=== PATIENT | female | born 2000 | race Caucasian/White ===

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

== ENCOUNTER 2020-11-13 09:20 | Emergency (ER) | payer OTHER, MEDICAID, SELFPAY ==
--- NOTE | 2020-11-13 09:26 | ED.URI ---
HPI - URI/Sore Throat General Chief Complaint: Upper Respiratory Infection Stated Complaint: Congestion, runny Nose, chills, fever, sore Throat Source: patient Mode of arrival: ambulatory Limitations: no limitations History of Present Illness HPI Narrative: Patient is a 20 year old female who presents complaining of chills, body aches, swollen lymph nodes , rhinorrhea and congestion x2 days. She reports her son tested positive for strep throat and negative for Covid. She reports she feels she has the same. She denies known fever, denies taking over the counter medications for symptom relief at this time. She denies significant medical history. She reports vaccinated for Covid x2 and has no known exposure. 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 Related Data Home Medications Medication Instructions Recorded Confirmed sertraline [Zoloft] 100 mg PO DAILY 11/13/20 11/13/20 Allergies Allergy/AdvReac Type Severity Reaction Status Date / Time latex Allergy Rash Verified 09/08/19 16:29 Review of Systems Review of Systems: CONSTITUTIONAL: Reports chills and body aches. EYES: Denies visual changes, redness, or discharge. ENT: Reports rhinorrhea, congestion, sore throat. CARDIOVASCULAR: Denies chest pain, palpitations, or edema. RESPIRATORY: Denies cough or dyspnea. GASTROINTESTINAL: Denies abdominal pain, nausea, vomiting, or diarrhea. GENITOURINARY: Denies dysuria or hematuria. SKIN: Denies rash or itching. MUSCULOSKELETAL: Denies back pain, joint pain, or myalgia. NEUROLOGIC: Denies headache, numbness, dizziness, or weakness. PSYCHIATRIC: Denies anxiety or depression. [facility] Past Medical History Medical History Cartilage disorder Constipation Interstitial cystitis Family History Family History (Updated 11/13/20 @ 09:57 by MEIR Perkins) Other No significant family history Social History Social History Smoking status: Never smoker Comments At the time of signature, I have reviewed and agree with nursing past medical, surgical, social, and family history unless otherwise noted. Please see nursing chart for further information. There is no relevant family history pertinent to the presenting complaint. Exam Narrative: GENERAL: Ill-appearing but in no acute distress HEAD: Normocephalic, atraumatic. EYES: EOMI. No redness or drainage. Conjunctiva are normal. ENT: Mucous membranes pink and moist. Nares clear. TMs normal bilaterally. Throat positive for erythema and edema, no exudate. Uvula midline. NECK: AROM. Supple. Cervical lymphadenopathy positive. CHEST: No respiratory distress. HEART: Regular rate and rhythm. EXTREMITIES: Normal range of motion. No edema. SKIN: Warm, dry, no rash. NEURO: No focal deficits. Alert and oriented x3. Gait steady. PSYCH: Normal affect. No signs of depression or anxiety. Course Vital Signs Vital signs: Vital Signs Temperature 37.3 C 11/13/20 09:30 Pulse Rate 106 H 11/13/20 09:30 Respiratory Rate 16 11/13/20 09:30 Blood Pressure 111/65 11/13/20 09:30 Pulse Oximetry 100 11/13/20 09:30 Temperature 37.3 C 11/13/20 09:30 Pulse Rate 106 H 11/13/20 09:30 Respiratory Rate 16 11/13/20 09:30 Blood Pressure 111/65 11/13/20 09:30 Pulse Oximetry 100 11/13/20 09:30 Reviewed MDM - URI/Sore Throat MDM Narrative Medical decision making narrative: Patient's rapid strep is negative, culture sent at this time. Patient declines Covid or flu testing. Patient's throat is erythematous without exudate. Discussed treatment for tonsillitis. Patient reports 67 son is positive for strep throat at this time. She reports he was tested for Covid and was negative. Patient is vaccinated. Patient is aware that if symptoms persist, Covid testing is recommended. Patient agrees with plan of care.
[2020-11-13 09:30] VITALS: BP 111/65; PULSE 106; RESP 16; TEMP 37.3; O2SAT 100
== END 2020-11-13 10:07 | disposition home or self-care (01) ==
PROVIDERS: Emergency Provider Nurse Practitioner; PCP Family Medicine
DX: J03.90 Acute tonsillitis, unspecified (principal)
CPT/HCPCS: 87081; 87880; 99213; G0463

== ENCOUNTER 2021-07-16 15:58 | Emergency (ER) | payer OTHER, MEDICAID, SELFPAY ==
[2021-07-16 16:06] VITALS: BP 105/59; PULSE 124; RESP 14; TEMP 37.7; O2SAT 99
--- NOTE | 2021-07-16 16:17 | ED.URI ---
HPI - URI/Sore Throat General Chief Complaint: Upper Respiratory Infection Stated Complaint: Fever/Vomiting Time Seen by Provider: 07/16/21 16:10 Source: patient and RN notes reviewed History of Present Illness HPI Narrative: Patient is a 21-year-old female who presents the urgent care with complaints of fever, nausea, vomiting and diarrhea. Patient states that she woke up this morning with body aches and chills. States that her roommate has influenza and another 1 has a stomach bug. Patient states her symptoms all started last night. Reports of the use of Tylenol without any other [id number] medications. No other acute complaints. No acute distress noted. Patient aware of the plan of care. Some parts of this dictation were generated by voice recognition software and may contain typographical and/or grammatical inaccuracies. Related Data Home Medications Medication Instructions Recorded Confirmed dextroamphetamine-amphetamine 25 mg PO DAILY 07/16/21 07/16/21 etonogestrel [Nexplanon] 1 implant SUBDERMAL ONCE 07/16/21 07/16/21 Allergies Allergy/AdvReac Type Severity Reaction Status Date / Time latex Allergy Rash Verified 07/16/21 16:04 Review of Systems Review of Systems: CONSTITUTIONAL: Reports of fever, chills, sweats EYES: Denies visual changes, redness, or discharge. ENT: Denies rhinorrhea, congestion, sore throat, or otalgia. CARDIOVASCULAR: Denies chest pain, palpitations, or edema. RESPIRATORY: Denies cough or dyspnea. GASTROINTESTINAL: Reports of nausea, vomiting and diarrhea GENITOURINARY: Denies dysuria or hematuria. SKIN: Denies rash or itching. MUSCULOSKELETAL: Denies back pain, joint pain. Reports of body aches NEUROLOGIC: Denies headache, numbness, or weakness. All other systems reviewed are negative, except as documented in HPI. [facility] Past Medical History Medical History Cartilage disorder Constipation Interstitial cystitis Family History Family History (Updated 11/13/20 @ 09:57 by Erinn Mcneil, MEIR) Other No significant family history Social History Social History Smoking status: Never smoker Comments At the time of my signature, I reviewed and agree with the nursing past medical, surgical, social, and family history. There is no relevant family history pertinent to the patient complaint. Exam Narrative: GENERAL: This is a well-nourished, well-developed patient, in no apparent distress. HEAD: normocephalic, atraumatic. EYES: PERRL. Sclera clear/white. Vision is grossly intact. EARS: External ears normal, auditory canals clear and without drainage, TMs normal without perforation. Hearing grossly intact. NOSE: External nose normal with no obvious nasal discharge, nares without redness, no rhinorrhea. THROAT: Mucous membranes moist, posterior pharynx clear. Mild postnasal drainage NECK: Neck supple CARDIOVASCULAR: Regular rate and rhythm RESPIRATORY: Clear to auscultation. Breath sounds equal bilaterally. No wheezes, rales, or rhonchi. GASTROINTESTINAL: Abdomen soft, non-tender, nondistended. Bowel sounds are hyperactive. No guarding. SKIN: warm, intact with no suspicious lesions or rash, good texture and turgor. NEURO: awake, alert, and oriented to person, place and time. There were no obvious focal neurologic abnormalities. EXTREMITIES: No clubbing, cyanosis, or edema. Course Course Level of Care: Express Care Visit Vital Signs Vital signs: Vital Signs Temperature 99.8 F H 07/16/21 16:06 Pulse Rate 124 H 07/16/21 16:06 Respiratory Rate 14 07/16/21 16:06 Blood Pressure 105/59 L 07/16/21 16:06 Pulse Oximetry 99 07/16/21 16:06 Temperature 99.8 F H 07/16/21 16:06 Pulse Rate 124 H 07/16/21 16:06 Respiratory Rate 14 07/16/21 16:06 Blood Pressure 105/59 L 07/16/21 16:06 Pulse Oximetry 99 07/16/21 16:06 Reviewed MDM - U
== END 2021-07-16 16:32 | disposition home or self-care (01) ==
PROVIDERS: Emergency Provider Nurse Practitioner Family; PCP Family Medicine
DX: K52.9 Noninfective gastroenteritis and colitis, unspecified (principal)
CPT/HCPCS: 87804; 99213; G0463

== ENCOUNTER 2021-11-06 09:44 | Emergency (ER) | payer OTHER, MEDICAID, SELFPAY ==
[2021-11-06 09:51] VITALS: BP 122/72; PULSE 80; RESP 18; TEMP 36.6; O2SAT 100
--- NOTE | 2021-11-06 10:02 | ED.NAVMDI ---
HPI - Nausea/Vomiting/Diarrhea General Chief complaint: Nausea/Vomiting/Diarrhea Stated complaint: Nausea/Vomiting Time Seen by Provider: 11/06/21 10:03 Source: patient and RN notes reviewed Mode of arrival: ambulatory Limitations: no limitations History of Present Illness HPI Narrative: 21 y/o female presented for c/o nausea x5 days, endorses episodes of vomiting last night and today. Denies abdominal pain, constipation, diarrhea, urinary symptoms, fever/chills. LMP 09/30/21 with Nexplanon, Took neg preg test at home. Recovering anorexic, stating she drinks most of her calories, and has vomited most of what she has drank. Took meclizine at home. Related Data Home Medications Medication Instructions Recorded Confirmed etonogestrel 68 mg subdermal 1 implant subdermal ONCE 07/16/21 11/06/21 implant (Nexplanon) aripiprazole 5 mg tablet (Abilify) 5 mg PO DAILY 11/06/21 11/06/21 lithium carbonate 300 mg capsule 300 mg PO HS 11/06/21 11/06/21 trazodone 100 mg tablet 100 mg PO HS 11/06/21 11/06/21 Allergies Allergy/AdvReac Type Severity Reaction Status Date / Time latex Allergy Anaphylaxis Verified 11/06/21 10:00 Review of Systems Review of Systems: CONSTITUTIONAL: Denies body aches, fever, chills ENT: Denies rhinorrhea, congestion CARDIOVASCULAR: Denies chest pain, palpitations, or edema. RESPIRATORY: Denies cough or dyspnea. GASTROINTESTINAL: Endorses nausea, vomiting Denies abdominal pain hematochezia, melena, hematemesis GENITOURINARY: Denies dysuria, hematuria, or CVA tenderness. SKIN: Denies rash, itching, or wounds. MUSCULOSKELETAL: Denies back pain, joint pain, or myalgia. NEUROLOGIC: Denies headache All systems reviewed & are unremarkable except as noted in HPI and below PMFSH Past Medical History Medical History Cartilage disorder Constipation Interstitial cystitis Family History Family History Other No significant family history Social History Social History Smoking status: Never smoker Comments At time of signature, I have reviewed and agree with nursing past medical, surgical, social and family history unless otherwise noted. Please see nursing chart for further information. There is no relevant family history pertinent to the presenting complaint Exam Narrative: GENERAL: Well-appearing EYES: EOMI. Conjunctivae normal. ENT: Mucous membranes pink and moist. CHEST: Clear to auscultation. HEART: Regular rate and rhythm. No murmur appreciated. Normal peripheral pulses. ABDOMEN: abd soft, flat, normal active bowel sounds. mild epigastric tenderness; No guarding EXTREMITIES: Normal range of motion. No edema. SKIN: Warm, dry, no rash. Capillary refill normal. Normal skin turgor. NEURO: Alert and oriented x3. PSYCH: Normal affect. Course Course Emergency Course: Patient is aware of diagnosis, understands and agrees to treatment plan. Anticipatory guidance given. Patient agrees to follow-up as directed and is aware of reasons to seek care at the emergency department. Portions of this record may have been created with voice recognition software Level of Care: Express Care Visit Vital Signs Vital signs: Vital Signs Temperature 98 F 11/06/21 09:51 Pulse Rate 80 11/06/21 09:51 Respiratory Rate 18 11/06/21 09:51 Blood Pressure 122/72 11/06/21 09:51 Pulse Oximetry 100 11/06/21 09:51 Oxygen Delivery Room Air 11/06/21 09:51 Temperature 98 F 11/06/21 09:51 Pulse Rate 80 11/06/21 09:51 Respiratory Rate 18 11/06/21 09:51 Blood Pressure 122/72 11/06/21 09:51 Pulse Oximetry 100 11/06/21 09:51 Oxygen Delivery Room Air 11/06/21 09:51 MDM - Nausea/Vomiting/Diarrhea MDM Narrative Medical decision making narrative: Urine preg negative. UA with trace leuks. Zofran given with
[2021-11-06] MEDS: ONDANSETRON HCL ODT 4 MG TABLET SUBLINGUAL (10:06)
== END 2021-11-06 10:47 | disposition home or self-care (01) ==
PROVIDERS: Emergency Provider Nurse Practitioner Family; PCP Family Medicine
DX: R11.2 Nausea with vomiting, unspecified (principal)
CPT/HCPCS: 81003; 81025; 87086; 87088; 99213; A9270; G0463

== ENCOUNTER 2022-01-22 08:05 | Emergency (ER) | payer OTHER, MEDICAID, SELFPAY ==
[2022-01-22 08:13] VITALS: BP 102/84; PULSE 127; RESP 20; TEMP 36.6; O2SAT 100
--- NOTE | 2022-01-22 08:15 | ED.URI ---
HPI - URI/Sore Throat General Chief Complaint: Upper Respiratory Infection Stated Complaint: headache nausea diarrhea Time Seen by Provider: 01/22/22 08:15 Source: patient and RN notes reviewed History of Present Illness HPI Narrative: patient is a 21-year-old female who presents to the Urgent Care with complaints of intermittent headache with nausea and diarrhea. Patient states she is not vomiting however she has had several loose stools since this morning at 1:30 a.m.. patient states that she is recovering anorexic and her 1st meal yesterday was last night, chicken and Pakistani fries. Patient states that is her normal diet and has never had issues before. Patient denies any known fevers. 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 Patient has not taken anything [id number] for her symptoms. No other acute complaints. No acute distress noted. Patient aware of the plan of care. Some parts of this dictation were generated by voice recognition software and may contain typographical and/or grammatical inaccuracies. Related Data Home Medications Medication Instructions Recorded Confirmed etonogestrel 68 mg subdermal 1 implant subdermal ONCE 07/16/21 01/22/22 implant (Nexplanon) aripiprazole 5 mg tablet (Abilify) 5 mg PO DAILY 11/06/21 01/22/22 lithium carbonate 300 mg capsule 300 mg PO HS 11/06/21 01/22/22 Allergies Allergy/AdvReac Type Severity Reaction Status Date / Time latex Allergy Anaphylaxis Verified 01/22/22 08:20 Review of Systems Review of Systems: CONSTITUTIONAL: Denies fever, chills, or sweats. EYES: Denies visual changes, redness, or discharge. ENT: Denies rhinorrhea, congestion, sore throat, or otalgia. CARDIOVASCULAR: Denies chest pain, palpitations, or edema. RESPIRATORY: Denies cough or dyspnea. GASTROINTESTINAL: reports of nausea and vomiting GENITOURINARY: Denies dysuria or hematuria. SKIN: Denies rash or itching. MUSCULOSKELETAL: Denies back pain, joint pain, or myalgia. NEUROLOGIC: reports of headache All other systems reviewed are negative, except as documented in HPI. [facility] Past Medical History Medical History Cartilage disorder Constipation Interstitial cystitis Family History Family History Other No significant family history Social History Social History Smoking status: Never smoker Comments At the time of my signature, I reviewed and agree with the nursing past medical, surgical, social, and family history. There is no relevant family history pertinent to the patient complaint. Exam Narrative: GENERAL: This is a well-nourished, well-developed patient, in no apparent distress. HEAD: normocephalic, atraumatic. EYES: PERRL. Sclera clear/white. Vision is grossly intact. EARS: External ears normal, auditory canals clear and without drainage, TMs normal without perforation. Hearing grossly intact. NOSE: External nose normal with no obvious nasal discharge, nares without redness, no rhinorrhea. THROAT: Mucous membranes moist, posterior pharynx clear. NECK: Neck supple, non-tender without lymphadenopathy CARDIOVASCULAR: Regular rate and rhythm without murmurs, gallops, or rubs. RESPIRATORY: Clear to auscultation. Breath sounds equal bilaterally. No wheezes, rales, or rhonchi. GASTROINTESTINAL: Abdomen soft, mild epigastric tenderness, nondistended. Bowel sounds are hypoactive. No guarding. SKIN: warm, intact with no suspicious lesions or rash, good texture and turgor. NEURO: awake, alert, and oriented to person, place and time. There were no obvious focal neurologic abnormalities. EXTREMITIES: No clubbing, cyanosis, or edema. Course Course Level of Care: Express Care Visit Vital Signs Vital signs: Vital Signs Temperature 97.8 F 01/22/22 08:13 Pulse Rate 127 H 01/22
== END 2022-01-22 08:37 | disposition home or self-care (01) ==
PROVIDERS: Emergency Provider Nurse Practitioner Family; PCP Family Medicine
DX: R11.2 Nausea with vomiting, unspecified (principal)
CPT/HCPCS: 99213; G0463

== ENCOUNTER 2022-02-20 08:24 | Emergency (ER) | payer OTHER, MEDICAID, SELFPAY ==
--- NOTE | 2022-02-20 08:28 | ED.URI ---
HPI - URI/Sore Throat General Chief Complaint: Upper Respiratory Infection Stated Complaint: Cough/Chest Congestion Time Seen by Provider: 02/20/22 08:28 Source: patient and RN notes reviewed History of Present Illness HPI Narrative: patient is a 21-year-old female who presents to urgent care with complaints of cough and chest congestion for 3 days. Patient states that she now woke up worse and fatigued. Patient denies any fevers, nausea, vomiting, shortness of breath. Patient has been taking Tylenol. 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 No other acute complaints. No acute distress noted. Patient aware of the plan of care. Some parts of this dictation were generated by voice recognition software and may contain typographical and/or grammatical inaccuracies. Related Data Home Medications Medication Instructions Recorded Confirmed etonogestrel 68 mg subdermal 1 implant subdermal ONCE 07/16/21 02/20/22 implant (Nexplanon) aripiprazole 5 mg tablet (Abilify) 5 mg PO DAILY 11/06/21 02/20/22 lithium carbonate 300 mg capsule 300 mg PO HS 11/06/21 02/20/22 Allergies Allergy/AdvReac Type Severity Reaction Status Date / Time latex Allergy Anaphylaxis Verified 02/20/22 08:39 Review of Systems Review of Systems: CONSTITUTIONAL: Denies fever, chills, or sweats. reports fatigue EYES: Denies visual changes, redness, or discharge. ENT: Denies rhinorrhea, congestion, sore throat, or otalgia. Reports of hoarseness CARDIOVASCULAR: Denies chest pain, palpitations, or edema. RESPIRATORY: reports of cough and chest congestion without dyspnea GASTROINTESTINAL: Denies abdominal pain, nausea, vomiting, or diarrhea. GENITOURINARY: Denies dysuria or hematuria. SKIN: Denies rash or itching. MUSCULOSKELETAL: Denies back pain, joint pain, or myalgia. NEUROLOGIC: Denies headache, numbness, or weakness. All other systems reviewed are negative, except as documented in HPI. [facility] Past Medical History Medical History Cartilage disorder Constipation Interstitial cystitis Family History Family History Other No significant family history Social History Social History Smoking status: Never smoker Comments At the time of my signature, I reviewed and agree with the nursing past medical, surgical, social, and family history. There is no relevant family history pertinent to the patient complaint. Exam Narrative: GENERAL: This is a well-nourished, well-developed patient, in no apparent distress. HEAD: normocephalic, atraumatic. EYES: PERRL. Sclera clear/white. Vision is grossly intact. EARS: External ears normal, auditory canals clear and without drainage, TMs normal without perforation. Hearing grossly intact. NOSE: External nose normal with no obvious nasal discharge, nares without redness, no rhinorrhea. THROAT: Mucous membranes moist, posterior pharynx clear. Moderate postnasal drainage NECK: Neck supple, non-tender without lymphadenopathy, masses or thyromegaly. CARDIOVASCULAR: Regular rate and rhythm without murmurs, gallops, or rubs. RESPIRATORY: harsh cough noted on exam.Clear to auscultation. Breath sounds equal bilaterally. No wheezes, rales, or rhonchi. SKIN: warm, intact with no suspicious lesions or rash, good texture and turgor. NEURO: awake, alert, and oriented to person, place and time. There were no obvious focal neurologic abnormalities. EXTREMITIES: No clubbing, cyanosis, or edema. Course Course Level of Care: Express Care Visit Vital Signs Vital signs: Vital Signs Temperature 98 F 02/20/22 08:38 Pulse Rate 90 02/20/22 08:38 Respiratory Rate 18 02/20/22 08:38 Blood Pressure 107/70 02/20/22 08:38 Pulse Oximetry 99 02/20/22 08:38 Oxygen Delivery Room Air 02/20/22 08:38 Temperature 98
[2022-02-20 08:38] VITALS: BP 107/70; PULSE 90; RESP 18; TEMP 36.6; O2SAT 99
== END 2022-02-20 08:57 | disposition home or self-care (01) ==
PROVIDERS: Emergency Provider Nurse Practitioner Family; PCP Family Medicine
DX: J00 Acute nasopharyngitis [common cold] (principal)
CPT/HCPCS: 99213; G0463

== ENCOUNTER 2022-03-09 09:38 | Emergency (ER) | payer OTHER, MEDICAID, SELFPAY ==
[2022-03-09 09:38] VITALS: BP 98/72; PULSE 73; RESP 16; TEMP 36.6; O2SAT 100
--- NOTE | 2022-03-09 09:58 | ED.GENADULT ---
HPI - General Adult General Chief complaint: Dental/Oral Stated complaint: infection on right side of mouth Time Seen by Provider: 03/09/22 09:47 History of Present Illness HPI narrative: Cal is a 21F with a PMH of poor dentition that presented to the ED with a a few days or worsening pain that started in her right lower molars and has become worse. She now has an ache in her right ear and it hurts to swallow but no food is getting stuck. There was no fevers, chills, CP, dyspnea, GI upset or diarrhea reported. Related Data Home Medications Medication Instructions Recorded Confirmed etonogestrel 68 mg subdermal 1 implant subdermal ONCE 07/16/21 03/09/22 implant (Nexplanon) aripiprazole 5 mg tablet (Abilify) 5 mg PO DAILY 11/06/21 03/09/22 lithium carbonate 300 mg capsule 300 mg PO HS 11/06/21 03/09/22 Allergies Allergy/AdvReac Type Severity Reaction Status Date / Time latex Allergy Anaphylaxis Verified 02/20/22 08:39 Review of Systems Review of Systems: All systems reviewed & are unremarkable except as noted in HPI and below PMFSH Past Medical History Medical History Cartilage disorder Constipation Interstitial cystitis Family History Family History Other No significant family history Social History Social History Smoking status: Never smoker Exam Const: General: healthy appearing and no acute distress Nutritional Appearance: well nourished HENMT: Head: normal to inspection Ears: external ears normal Mouth: Yes Normal oral and palatal mucosa present and Yes moist mucous membranes Other: globally poor dentition and right lower molar had edematous erythematous base Eyes: Conjunctivae: conjunctivae normal Pupils: Equal, round and reactive pupils present Neck: Neck: normal visual inspection Chest: Chest palpation & inspection: normal inspection of the chest Resp: Effort & Inspection: normal respiratory effort Auscultation: clear to auscultation bilaterally Cardio: Rate: regular rate GI: Inspection: distended GI Palp: Yes Soft to palpation and No Tenderness to palpation present (GI) Auscultation: normal bowel sounds Skin: General skin exam: normal color Neuro: General: patient oriented x3 and moves all extremities Cranial nerves: Yes Nystagmus not present Extrem: General: normal to inspection Psych: Mental Status: mental status grossly normal Course Course Emergency Course: Ordered Augmentin and toradol Vital Signs Vital signs: Vital Signs Temperature 97.8 F 03/09/22 09:38 Pulse Rate 73 03/09/22 09:38 Respiratory Rate 16 03/09/22 09:38 Blood Pressure 98/72 L 03/09/22 09:38 Pulse Oximetry 100 03/09/22 09:38 Oxygen Delivery Room Air 03/09/22 09:38 Temperature 97.8 F 03/09/22 10:42 Pulse Rate 76 03/09/22 10:42 Respiratory Rate 20 03/09/22 10:42 Blood Pressure 98/72 L 03/09/22 10:42 Pulse Oximetry 100 03/09/22 10:42 Oxygen Delivery Room Air 03/09/22 10:42 Medical Decision Making Vital Signs Vital Signs: Vital Signs Temperature 97.8 F 03/09/22 09:38 Pulse Rate 73 03/09/22 09:38 Respiratory Rate 16 03/09/22 09:38 Blood Pressure 98/72 L 03/09/22 09:38 Pulse Oximetry 100 03/09/22 09:38 Oxygen Delivery Room Air 03/09/22 09:38 Temperature 97.8 F 03/09/22 10:42 Pulse Rate 76 03/09/22 10:42 Respiratory Rate 20 03/09/22 10:42 Blood Pressure 98/72 L 03/09/22 10:42 Pulse Oximetry 100 03/09/22 10:42 Oxygen Delivery Room Air 03/09/22 10:42 Discharge Plan Discharge Clinical Impression: Dental infection Patient Disposition: Home, Self-Care Condition: Stable Instructions: Antibiotic Form Prescriptions: New amoxicillin-pot clavulanate 875-125 mg tablet 1 tablet PO Q12H Qty: 10 0RF hydrocodone-
[2022-03-09] MEDS: KETOROLAC 30 MG/ML VIAL (*BKC) IM (10:31)
[2022-03-09] MEDS: AMOXICILLIN/CLAVULANATE K 875-125 MG TAB 1 TABLET PO (10:32)
[2022-03-09 10:42] VITALS: BP 98/72; PULSE 76; RESP 20; TEMP 36.6; O2SAT 100
== END 2022-03-09 10:45 | disposition home or self-care (01) ==
PROVIDERS: Emergency Provider Family Medicine; PCP Family Medicine
DX: K04.7 Periapical abscess without sinus (principal)
CPT/HCPCS: 96372; 99283; A9270; J1885

== ENCOUNTER 2022-05-15 08:16 | Emergency (ER) | payer OTHER, MEDICAID, SELFPAY ==
--- NOTE | 2022-05-15 08:21 | ED.GENADULT ---
HPI - General Adult General Chief complaint: Back Pain/Injury Stated complaint: Back Pain Source: patient and RN notes reviewed History of Present Illness HPI narrative: 22-year-old female presents to urgent care with complaints of right mid back pain that woke her up in the middle of the night. Patient states the pain is constant however no acute intense intermittently. Patient states she feels the pain more when she palpates her right upper quadrant of her abdomen. Patient reports but denies any vomiting. Denies any dysuria, diarrhea or constipation. Denies any fevers or chills. Patient took some Tylenol night without any relief. Some parts of this dictation were generated by voice recognition software and may contain typographical and/or grammatical inaccuracies. Related Data Home Medications Medication Instructions Recorded Confirmed etonogestrel 68 mg subdermal 1 implant subdermal ONCE 07/16/21 05/15/22 implant (Nexplanon) aripiprazole 5 mg tablet (Abilify) 5 mg PO DAILY 11/06/21 05/15/22 lithium carbonate 300 mg capsule 300 mg PO HS 11/06/21 05/15/22 Allergies Allergy/AdvReac Type Severity Reaction Status Date / Time latex Allergy Anaphylaxis Verified 05/15/22 08:28 Review of Systems Review of Systems: CONSTITUTIONAL: Denies fever, chills, or sweats. EYES: Denies visual changes, redness, or discharge. ENT: Denies otalgia and sore throat CARDIOVASCULAR: Denies chest pain, palpitations, or edema. RESPIRATORY: Denies cough or dyspnea. GASTROINTESTINAL: Nausea GENITOURINARY: Denies dysuria or hematuria. SKIN: Denies rash or itching. MUSCULOSKELETAL: Right midback pain. NEUROLOGIC: Denies headache, numbness, or weakness. [facility] Past Medical History Medical History Cartilage disorder Constipation Interstitial cystitis Family History Family History Other No significant family history Social History Social History Smoking status: Never smoker Comments At the time of my signature, I reviewed and agree with the nursing past medical, surgical, social, and family history. There is no relevant family history pertinent to the patient complaint. Exam Narrative: GENERAL: This is a well-nourished, well-developed patient, in no apparent distress. HEAD: normocephalic, atraumatic. EYES: PERRL. Sclera clear/white. Vision is grossly intact. EARS: External ears normal, auditory canals clear and without drainage, TMs normal without perforation. Hearing grossly intact. NOSE: External nose normal with no obvious nasal discharge, nares without redness, no rhinorrhea. THROAT: Mucous membranes moist, posterior pharynx clear. NECK: Neck supple, non-tender without lymphadenopathy, masses or thyromegaly. CARDIOVASCULAR: Regular rate and rhythm without murmurs, gallops, or rubs. RESPIRATORY: Clear to auscultation. Breath sounds equal bilaterally. No wheezes, rales, or rhonchi. GASTROINTESTINAL: Pt feels pain in her right mid back when her RUQ is palpated. No RLQ or epigastric pain. SKIN: warm, intact with no suspicious lesions or rash, good texture and turgor. NEURO: awake, alert, and oriented to person, place and time. There were no obvious focal neurologic abnormalities. EXTREMITIES: No clubbing, cyanosis, or edema. No joint tenderness, effusion, or edema noted. BACK: Nontender without deformity or crepitance. No flank tenderness. Course Course Level of Care: Express Care Visit Vital Signs Vital signs: Vital Signs Temperature 97.8 F 05/15/22 08:22 Pulse Rate 92 05/15/22 08:22 Respiratory Rate 20 05/15/22 08:22 Blood Pressure 100/59 L 05/15/22 08:22 Pulse Oximetry 100 05/15/22 08:22 Oxygen Delivery Room Air 05/15/22 08:22 Temperature 97.8 F 05/15/22 08:22 Pulse Rate 92 05/15/22 08:22 Respiratory Rate 20 05/15/22 0
[2022-05-15 08:22] VITALS: BP 100/59; PULSE 92; RESP 20; TEMP 36.6; O2SAT 100
== END 2022-05-15 09:02 | disposition home or self-care (01) ==
PROVIDERS: Emergency Provider Nurse Practitioner Family; PCP Family Medicine
DX: N39.0 Urinary tract infection, site not specified (principal)
CPT/HCPCS: 81003; 81025; 87077; 87086; 87186; 99213; G0463

== ENCOUNTER 2022-06-21 09:00 | Emergency (ER) | payer OTHER, MEDICAID, SELFPAY ==
--- NOTE | ~2022-06-21 | CT_ITS ---
EXAMINATION: CT abdomen pelvis w con DATE: 06/21/2022 10:47 INDICATION: Generalized abdominal pain, nausea, vomiting and diarrhea for 3 to 4 days. TECHNIQUE: Computed tomography (CT) of the abdomen and pelvis was performed with 100 CC Omnipaque 350 intravenous contrast. Automated exposure control and iterative reconstruction technique were employe d. Exam dose: 194.70 mGy-cm total exam DLP. COMPARISON: None. FINDINGS: The lung bases are clear. Normal heart size. No pericardial or pleural effusion. The liver, gallbladder, bile ducts, spleen, pancreas, pancreatic duct, and adrenal glands and kidneys are unremarkable. Normal caliber of the abdominal aorta. No intraperitoneal or retroperitoneal or pe lvic mass lesion or adenopathy or ascites is detected. There is moderate thickness of the urinary bladder wall which may be due to underdistention or cystit is. Uterus and adnexal areas are unremarkable. No bowel obstruction, bowel wall thickening, pneumatosis or intraperitoneal free air is detected. The appendix is not clearly defined but no inflammatory changes noted in the right lower quadrant. Included skeletal structures are unremarkable. IMPRESSION: Nonspecific examination Reviewed, dictated and finalized at [facility]. Reviewed, dictated and finalized at [facility]. IMPRESSION: Nonspecific examination
--- NOTE | ~2022-06-21 | XR_ITS ---
XR chest 2V DATE: 06/21/2022 10:48 INDICATION: Shortness of breath, nausea, vomiting and diarrhea for 4 to 5 days. TECHNIQUE: PA and lateral views COMPARISON: None FINDINGS: Normal heart size. No hilar or mediastinal enlargement. Bilateral hyperinflation. No pulmon alphonso infiltrate or consolidation, pleural effusion or pulmonary vascular congestion or pneumothorax. IMPRESSION: Bilateral hyperinflation Reviewed, dictated and finalized at [facility]. IMPRESSION: Bilateral hyperinflation
[2022-06-21 09:00] VITALS: BP 129/81; PULSE 110; RESP 18; TEMP 38.6; O2SAT 99
--- NOTE | 2022-06-21 09:22 | ECG_ITS ---
Measurements Intervals [place] Rate: 97 P: 58 DC: 123 QRS: 87 QRSD: 96 T: 52 QT: 314 QTc: 401 Interpretive Statements SINUS RHYTHM POSSIBLE RIGHT VENTRICULAR CONDUCTION DELAY [RSR (QR) IN V1/V2] BORDERLINE ECG COMPARED TO ECG 09/08/2019 20:17:05 NO SIGNIFICANT CHANGES Electronically Signed On 06-21-2022 14:46:16 CDT by Vaibhav Montero M.D.
[2022-06-21 09:49] LABS: Basophils Absolute Auto 0.02 K/mm3 (0.00-0.10); Basophils Percent Auto 0.2 % (0.0-1.0); Eosinophils Absolute Auto 0.01 K/mm3 (0.02-0.50); Eosinophils Percent Auto 0.1 % (1.0-6.0); Hematocrit 37.9 % (35.0-49.0); Immature Granulocyte Absolute 0.05 K/mm3 (0.00-0.00); Immature Granulocyte Percent A 0.4 % (0.0-0.0); Lymphocytes Absolute Auto 0.62 K/mm3 (1.10-4.50); Lymphocytes Percent Auto 4.8 % (18.0-42.0); Mean Corpuscular HGB Conc 34.3 g/dL (32.0-36.0); Mean Corpuscular Hemoglobin 30.2 pg (27.0-31.0); Mean Corpuscular Volume 87.9 fL (78.0-102.0); Mean Platelet Volume 9.5 fl (9.2-11.8); Monocytes Absolute Auto 0.81 K/mm3 (0.10-0.90); Monocytes Percent Auto 6.3 % (2.0-11.0); Neutrophils Absolute Auto 11.4 K/mm3 (1.7-7.2); Neutrophils Percent Auto 88.2 % (50.0-70.0); Platelet Count Result 272 K/mm3 (150-420); Red Blood Count 4.31 M/mm3 (4.20-5.40); Red Cell Distribution Width 12.2 % (11.6-14.4)
[2022-06-21 09:51] LABS: Bilirubin Urine 1+ (Negative); Blood Urine Negative (Negative); Glucose Urine UA Negative (Negative); Ketones Urine 1+ (Negative); Leukocyte Esterase Ur Negative LEU/UL (Negative); Nitrate Urine Negative (Negative); Protein Urine 2+ (Negative); Specific Grav Ur 1.025 (1.010-1.020)
[2022-06-21] MEDS: SODIUM CHLORIDE 0.9% IV 1,000 ML 999 ML IV CONT (09:53)
[2022-06-21] MEDS: ALPRAZolam (*CRX) 0.5 MG TABLET PO (09:54)
[2022-06-21] MEDS: ACETAMINOPHEN 500 MG TABLET 1000 MG PO (09:54)
[2022-06-21] MEDS: ONDANSETRON INJ 4 MG/2 ML VIAL IV PUSH (09:55)
[2022-06-21 10:00] LABS: Appearance Urine Slightly Cloudy (Clear); Color Urine Dark Yellow (Yellow); Pregnancy On Board Control Positive; Urine Pregnancy Test Negative
[2022-06-21 10:01] LABS: Add Urine Microscopic? YES; Bacteria Urine 2+ /hpf; Mucus Urine Few /lpf; RBC Urine 0-2 /hpf (0-2); Squamous Epithelial Cell Urine Few /hpf (Few); WBC Urine 0-3 /hpf (0-3)
[2022-06-21 10:12] LABS: Lactic Acid Reflex 1.1 mmol/L (0.4-2.0)
[2022-06-21 10:13] LABS: Alanine Aminotransferase 16 U/L (14-59); Albumin Level 4.1 g/dL (3.4-5.0); Alkaline Phosphatase 74 U/L (46-116); Anion Gap 12 mmol/L (8-16); Aspartate Amino Transferase 15 U/L (15-37); Bilirubin,Total 0.8 mg/dL (0.00-1.00); Blood Urea Nitrogen 7 mg/dL (7-18); Calcium 8.7 mg/dL (8.5-10.1); Carbon Dioxide 24 mmol/L (21-32); Chloride 98 mmol/L (98-108); Estimated CRCL calculation 68 ml/min; Estimated Glomerular Filt Rate > 60; Glucose 107 mg/dL (70-99); Osmolality Calculated 276 mOsm/kg (285-295); Potassium 2.9 mmol/L (3.5-5.1); Sodium 134 mmol/L (136-145); Thyroid Stimulating Hormone 0.52 uIU/mL (0.36-3.74); Total Protein 7.8 g/dL (6.4-8.2)
[2022-06-21 10:26] LABS: Influenza A QL RT-PCR Negative (Negative); Influenza B QL RT-PCR Negative (Negative); RSV RNA, RT-PCR Negative (Negative); SARS-CoV-2 RNA PCR Negative (Negative)
[2022-06-21] MEDS: KCL 20 MEQ/SW 100 ML 100 ML 50 MEQ IVPB (10:28)
[2022-06-21] MEDS: POTASSIUM BICARBONATE 25 MEQ TABEF 50 MEQ PO (10:28)
[2022-06-21] MEDS: SODIUM CHLORIDE 0.9% IV 500 ML 50 ML IV CONT (10:54)
[2022-06-21 10:57] VITALS: TEMP 38.8
--- NOTE | 2022-06-21 11:11 | ED.NAVMDI ---
HPI - Nausea/Vomiting/Diarrhea General Chief complaint: Nausea/Vomiting/Diarrhea Stated complaint: vomiting and diarrhea Time Seen by Provider: 06/21/22 09:22 Source: patient Mode of arrival: ambulatory Limitations: no limitations History of Present Illness HPI Narrative: This is a 22-year-old female with a history of anorexia nervosa has been nauseated and vomiting with decreased appetite with a crampy abdominal pain was mild diarrhea with some dysuria with with temperature of 101, with no chest pain patient does describe having some shortness of breath with no cough or congestion with no flank pain. MD elicited complaint: nausea and abdominal pain Pertinent past history: anorexia Onset (ago): day(s) Related Data Home Medications Medication Instructions Recorded Confirmed etonogestrel 68 mg subdermal 1 implant subdermal ONCE 07/16/21 06/21/22 implant (Nexplanon) aripiprazole 5 mg tablet (Abilify) 5 mg PO DAILY 11/06/21 06/21/22 lithium carbonate 300 mg capsule 300 mg PO HS 11/06/21 06/21/22 Allergies Allergy/AdvReac Type Severity Reaction Status Date / Time latex Allergy Anaphylaxis Verified 05/15/22 08:28 Review of Systems Review of Systems: All systems reviewed & are unremarkable except as noted in HPI and below PMFSH Past Medical History Medical History Cartilage disorder Constipation Interstitial cystitis Family History Family History Other No significant family history Social History Social History Smoking status: Never smoker Substance use type: marijuana Exam Const: General: healthy appearing Nutritional Appearance: well nourished Orientation/consciousness: patient oriented x3 Limitations: no limitations HENMT: Head: normal to inspection Neck: Neck: normal visual inspection and no lymphadenopathy Chest: Chest palpation & inspection: normal inspection of the chest Resp: Effort & Inspection: normal respiratory effort Auscultation: clear to auscultation bilaterally Cardio: Rate: regular rate Rhythm: regular rhythm GI: GI Palp: Yes Soft to palpation Auscultation: normal bowel sounds : General: Yes bladder normal to palpation Urinary Catheter: Urinary Catheter: patent and draining Back/Spine/Pelvis: Back: no CVA tenderness Skin: General skin exam: normal color Rashes: no rashes Wounds: no wounds Neuro: General: patient oriented x3 Cranial nerves: Yes Nystagmus not present Speech: normal speech Gait exam (Neuro): Normal gait present Extrem: General: normal to inspection Psych: Mental Status: mental status grossly normal Affect: normal affect Attitude: cooperative Course Course Emergency Course: Labs reviewed with patient which is did show that she has hypokalemia at 2.9 potassium level, patient started on IV fluids, replace potassium with K rider and a dose of oral potassium. CT scan and chest x-ray reviewed with patient, chest x-ray shows mild hyperinflation otherwise no opacities, CT scan showed a cystitis along with some cloudy urine and 2+ bacteria will give the patient a dose of Macrobid. Patient with her symptoms has been anxious and received a dose of oral Xanax, patient states with fluids and with medication including Xanax and Zofran symptoms have improved. Vital Signs Vital signs: Vital Signs Temperature 38.6 C H 06/21/22 09:00 Pulse Rate 110 H 06/21/22 09:00 Respiratory Rate 18 06/21/22 09:00 Blood Pressure 129/81 06/21/22 09:00 Pulse Oximetry 99 06/21/22 09:00 Oxygen Delivery Room Air 06/21/22 09:00 Temperature 38.8 C H 06/21/22 10:57 Pulse Rate 110 H 06/21/22 09:00 Respiratory Rate 18 06/21/22 09:00 Blood Pressure 129/81 06/21/22 09:00 Pulse Oximetry 99 06/21/22 09:00 Oxygen Delivery Room Air 06/21/22 09:00 MDM - Nausea/Vomiting
[2022-06-21] MEDS: NITROFURANTOIN MONOHYD MACROCR 100 MG CAP PO (11:23)
[2022-06-21 11:30] VITALS: BP 93/57; PULSE 83; RESP 16; TEMP 36.8; O2SAT 96
[2022-06-21 12:39] VITALS: BP 91/56; PULSE 78; RESP 18; TEMP 36.8; O2SAT 98
== END 2022-06-21 12:50 | disposition home or self-care (01) ==
PROVIDERS: Emergency Provider Emergency Medicine; PCP Family Medicine
DX: N30.00 Acute cystitis without hematuria (principal); E86.0 Dehydration; E87.6 Hypokalemia; F50.00 Anorexia nervosa, unspecified; Z20.822 Contact with and (suspected) exposure to COVID-19; Z79.899 Other long term (current) drug therapy
CPT/HCPCS: 36415; 71046; 74177; 80053; 81001; 81025; 83605; 84443; 85025; 87637; 93005; 96361; 96365; 96366; 96375; 99284; A9270; J2405; J3480; J7030; J7040; Q9967

== ENCOUNTER 2022-08-22 13:25 | Emergency (ER) | payer OTHER, MEDICAID, SELFPAY ==
[2022-08-22 13:31] VITALS: BP 111/70; PULSE 119; RESP 18; TEMP 37.7; O2SAT 100
--- NOTE | 2022-08-22 13:43 | ED.URI ---
HPI - URI/Sore Throat General Chief Complaint: Upper Respiratory Infection Stated Complaint: sore throat/chills Source: patient and RN notes reviewed History of Present Illness HPI Narrative: 22 yo F presents to urgent care with complaints of a sore throat since last night. Pt states she also has an itchy right ear and chills. Pt states her throat pain is all on the right side of her throat. Reports her mom had the same symptoms a couple days ago. Pt reports waking up sweating as well. Pt denies any chest pain, SOB, vomiting, diarrhea. Pt has not taken anything for her pain. Related Data Home Medications Medication Instructions Recorded Confirmed etonogestrel 68 mg subdermal 1 implant subdermal ONCE 07/16/21 08/22/22 implant (Nexplanon) lithium carbonate 300 mg capsule 300 mg PO DAILY 11/06/21 08/22/22 aripiprazole 15 mg tablet 15 mg PO DAILY 08/22/22 08/22/22 trazodone 100 mg tablet 100 mg PO DAILY 08/22/22 08/22/22 Allergies Allergy/AdvReac Type Severity Reaction Status Date / Time latex Allergy Anaphylaxis Verified 08/22/22 13:48 Review of Systems Review of Systems: Pertinent positives and pertinent negatives per HPI. [facility] Past Medical History Medical History Cartilage disorder Constipation Interstitial cystitis Family History Family History Other No significant family history Social History Social History Smoking status: Never smoker Substance use type: marijuana Comments At the time of my signature, I reviewed and agree with the nursing past medical, surgical, social, and family history. There is no relevant family history pertinent to the patient complaint. Exam Narrative: GENERAL: This is a well-nourished, well-developed patient, in no apparent distress. HEAD: normocephalic, atraumatic. EYES: Sclera clear/white. Vision is grossly intact. EARS: External ears normal, auditory canals clear and without drainage, TMs normal without perforation. Hearing grossly intact. NOSE: External nose normal with no obvious nasal discharge, nares without redness, no rhinorrhea. THROAT: Mucous membranes moist, posterior pharynx erythremic NECK: Neck supple, non-tender without lymphadenopathy, masses or thyromegaly. CARDIOVASCULAR: Regular rate and rhythm without murmurs, gallops, or rubs. RESPIRATORY: Clear to auscultation. Breath sounds equal bilaterally. No wheezes, rales, or rhonchi. SKIN: warm, intact with no suspicious lesions or rash, good texture and turgor. NEURO: awake, alert, and oriented to person, place and time. There were no obvious focal neurologic abnormalities. EXTREMITIES: No clubbing, cyanosis, or edema. No joint tenderness, effusion, or edema noted. BACK: Nontender without deformity or crepitus. No flank tenderness. Course Course Level of Care: Express Care Visit Vital Signs Vital signs: Vital Signs Temperature 100 F H 08/22/22 13:31 Pulse Rate 119 H 08/22/22 13:31 Respiratory Rate 18 08/22/22 13:31 Blood Pressure 111/70 08/22/22 13:31 Pulse Oximetry 100 08/22/22 13:31 Oxygen Delivery Room Air 08/22/22 13:31 Temperature 100 F H 08/22/22 13:31 Pulse Rate 119 H 08/22/22 13:31 Respiratory Rate 18 08/22/22 13:31 Blood Pressure 111/70 08/22/22 13:31 Pulse Oximetry 100 08/22/22 13:31 Oxygen Delivery Room Air 08/22/22 13:31 Reviewed MDM - URI/Sore Throat MDM Narrative Medical decision making narrative: Rapid strep is negative in the office; however we will send to the lab for confirmation; there is a small percentage chance that it can come back positive; if it is, we will call you in 2-3days; and your prescription will be call in to your pharmacy. However, there is NO indication for antibiotic at this time. -Increase your fluids and Vitamin C. -Oral rinses such as:
== END 2022-08-22 14:05 | disposition home or self-care (01) ==
PROVIDERS: Emergency Provider Nurse Practitioner Family; PCP Family Medicine
DX: J02.9 Acute pharyngitis, unspecified (principal)
CPT/HCPCS: 87081; 87880; 99213; G0463

== ENCOUNTER 2022-10-31 08:49 | Emergency (ER) | payer OTHER, MEDICAID, SELFPAY ==
[2022-10-31 08:54] VITALS: BP 109/86; PULSE 74; RESP 18; TEMP 36.5; O2SAT 100
--- NOTE | 2022-10-31 08:54 | ED.FEMALEGU ---
HPI - Female Genitourinary General Chief complaint: Urogenital-Female Stated complaint: std test Time Seen by Provider: 10/31/22 09:21 Source: patient and RN notes reviewed Mode of arrival: ambulatory Limitations: no limitations History of Present Illness HPI Narrative: 22-year-old female presents with concern for exposure to chlamydia. Reports her partner tested positive for chlamydia. She reports she has had some mild abdominal cramping and vaginal spotting. She reports she has a Nexplanon that is almost due to be replaced. She reports she does not have any change in vaginal discharge, dysuria, frequency, urgency, vaginal lesions. MD elicited complaint: possible STD Related Data Home Medications Medication Instructions Recorded Confirmed etonogestrel 68 mg subdermal 1 implant subdermal ONCE 07/16/21 10/31/22 implant (Nexplanon) lithium carbonate 300 mg capsule 300 mg PO DAILY 11/06/21 10/31/22 aripiprazole 15 mg tablet 15 mg PO DAILY 08/22/22 10/31/22 trazodone 100 mg tablet 100 mg PO DAILY 08/22/22 10/31/22 Allergies Allergy/AdvReac Type Severity Reaction Status Date / Time latex Allergy Anaphylaxis Verified 10/31/22 09:18 Review of Systems Review of Systems: CONSTITUTIONAL: Denies malaise, chills, sweats, or fever. CARDIOVASCULAR: Denies chest pain, palpitations, or edema. RESPIRATORY: Denies cough or dyspnea. GASTROINTESTINAL: Denies abdominal pain, nausea, vomiting, diarrhea GENITOURINARY: Denies dysuria, frequency, urgency. Reports vaginal spotting and suprapubic cramping. Denies flank pain or hematuria. SKIN: Denies rash or itching. MUSCULOSKELETAL: Denies back pain or myalgia. All systems reviewed & are unremarkable except as noted in HPI and below PMFSH Past Medical History Medical History Cartilage disorder Constipation Interstitial cystitis Family History Family History Other No significant family history Social History Social History Smoking status: Never smoker Substance use type: marijuana Comments At time of signature, agree with nursing past medical, surgical, social and family history. There is no relevant family history pertinent to the presenting complaint Exam Narrative: GENERAL: Well-appearing, well-nourished, and in no acute distress. HEAD: Normocephalic. EYES: PERRLA, conjunctivae clear. NECK: Supple. No lymphadenopathy CHEST: Clear to auscultation. No respiratory distress. HEART: Regular rate and rhythm. ABDOMEN: Soft, mild suprapubic tenderness, nondistended, normal active bowel sounds, no palpable or pulsatile masses, no guarding. No CVA tenderness SKIN: Warm, dry, no rash. NEURO: Alert and oriented x3. PSYCH: Normal mood and affect Course Course Emergency Course: Because patient has been exposed to chlamydia we will treat for chlamydia today, she would prefer to wait to treat anything else for confirmation of positive results. She understands she may need to return for an injection. Patient is aware of diagnosis, understands and agrees to treatment plan. Anticipatory guidance given. Patient agrees to follow-up as directed and is aware of reasons to seek care at the emergency department. Portions of this record may have been created with voice recognition software Level of Care: Express Care Visit Vital Signs Vital signs: Reviewed. MDM - Female Genitourinary MDM Narrative Medical decision making narrative: Exam findings and UA show no acute concerns or changes; patient is non-toxic appearing and is in no distress. Patient is appropriate for outpatient treatment and follow-up. Differential Diagnosis Differential diagnosis: Likely urinary tract infection and cystitis Critical Care Time Critical Care Time Critical Care Time: No Discharge Plan Discharge Clinical Impression
== END 2022-10-31 09:31 | disposition home or self-care (01) ==
PROVIDERS: Emergency Provider Nurse Practitioner; PCP Family Medicine
DX: Z11.3 Encounter for screening for infections with a predominantly sexual mode of transmission (principal)
CPT/HCPCS: 87491; 87591; 87661; 99213; G0463

== ENCOUNTER 2023-02-19 09:18 | Emergency (ER) | payer OTHER, MEDICAID, SELFPAY ==
--- NOTE | 2023-02-19 09:19 | ED.EYEPROB ---
HPI - Eye Problem General Chief complaint: Eye Problems Stated complaint: left eye Source: patient and RN notes reviewed Mode of arrival: ambulatory Limitations: no limitations History of Present Illness HPI Narrative: Patient is a 22-year-old female who presents to the [facility] with complaints of left eye redness, pain, and drainage that she noted this morning. Patient states that she woke up this morning with her eye matted shut with yellow/ green drainage. She denies visual disturbance. 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 She denies recent fevers. Related Data Home Medications Medication Instructions Recorded Confirmed etonogestrel 68 mg subdermal 1 implant subdermal ONCE 07/16/21 02/19/23 implant (Nexplanon) lithium carbonate 300 mg capsule 300 mg PO DAILY 11/06/21 02/19/23 aripiprazole 15 mg tablet 15 mg PO DAILY 02/19/23 02/19/23 cariprazine 3 mg capsule (Vraylar) 3 mg PO DAILY 02/19/23 02/19/23 Allergies Allergy/AdvReac Type Severity Reaction Status Date / Time latex Allergy Anaphylaxis Verified 02/19/23 09:29 Review of Systems Review of Systems: CONSTITUTIONAL: Denies fever, chills, or sweats. EYES: Denies visual changes. Reports left eye redness and drainage. ENT: Denies otalgia and sore throat CARDIOVASCULAR: Denies chest pain, palpitations, or edema. RESPIRATORY: Denies cough or dyspnea. GASTROINTESTINAL: Denies abdominal pain, nausea, vomiting, or diarrhea. GENITOURINARY: Denies dysuria or hematuria. SKIN: Denies rash or itching. MUSCULOSKELETAL: Denies back pain, joint pain, or myalgia. NEUROLOGIC: Denies headache, numbness, or weakness. Pertinent positives per HPI. [facility] Past Medical History Medical History Cartilage disorder Constipation Interstitial cystitis Family History Family History Other No significant family history Social History Social History Smoking status: Never smoker Substance use type: marijuana Comments At the time of my signature, I reviewed and agree with the nursing past medical, surgical, social, and family history. There is no relevant family history pertinent to the patient complaint. Exam Narrative: GENERAL: This is a well-nourished, well-developed patient, in no apparent distress. HEAD: normocephalic, atraumatic. EYES: PERRL. Sclera clear/white on right; injection noted on the left with yellow drainage in the corner of the eye. Vision is grossly intact. EARS: External ears normal, auditory canals clear and without drainage, TMs normal without perforation. Hearing grossly intact. NOSE: External nose normal with no obvious nasal discharge, nares without redness, no rhinorrhea. THROAT: Mucous membranes moist, posterior pharynx clear. NECK: Neck supple, non-tender without lymphadenopathy, masses or thyromegaly. CARDIOVASCULAR: Regular rate and rhythm without murmurs, gallops, or rubs. RESPIRATORY: Clear to auscultation. Breath sounds equal bilaterally. No wheezes, rales, or rhonchi. GASTROINTESTINAL: Abdomen soft, non-tender, nondistended. Bowel sounds are active. No hepato-splenomegaly, or palpable masses. No guarding. SKIN: warm, intact with no suspicious lesions or rash, good texture and turgor. NEURO: awake, alert, and oriented to person, place and time. There were no obvious focal neurologic abnormalities. Course Course Level of Care: Express Care Visit Vital Signs Vital signs: Vital Signs Temperature 98.8 F 02/19/23 09:22 Pulse Rate 81 02/19/23 09:22 Respiratory Rate 18 02/19/23 09:22 Blood Pressure 107/70 02/19/23 09:22 Pulse Oximetry 100 02/19/23 09:22 Oxygen Delivery Room Air 02/19/23 09:22 Temperature 98.8 F 02/19/23 09:22 Pulse Rate 81 02/19/23 09:22 Respiratory Rate 18 02/19/23 09:22
[2023-02-19 09:22] VITALS: BP 107/70; PULSE 81; RESP 18; TEMP 37.1; O2SAT 100
== END 2023-02-19 09:35 | disposition home or self-care (01) ==
PROVIDERS: Emergency Provider Nurse Practitioner; PCP Family Medicine
DX: H10.32 Unspecified acute conjunctivitis, left eye (principal); F12.90 Cannabis use, unspecified, uncomplicated
CPT/HCPCS: 99213; G0463

== ENCOUNTER 2023-07-23 19:07 | Emergency (ER) | payer OTHER, MEDICAID, SELFPAY ==
[2023-07-23 19:18] VITALS: BP 127/85; PULSE 101; RESP 20; TEMP 37; O2SAT 100
--- NOTE | 2023-07-23 19:29 | ED.LOWEXIN ---
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 Patient then went to the gym and was lifting 30 lb weights. Patient still able to ambulate normally. Denies any numbness, tingling, weakness to the rest of leg. Has not taken anything for pain Related Data Home Medications Medication Instructions Recorded Confirmed etonogestrel 68 mg subdermal 1 implant subdermal ONCE 07/16/21 07/23/23 implant (Nexplanon) Allergies Allergy/AdvReac Type Severity Reaction Status Date / Time latex Allergy Anaphylaxis Verified 07/23/23 19:32 Review of Systems Review of Systems: All systems reviewed & are unremarkable except as noted in HPI and below Constitutional: Constitutional: Denies body ache(s), Denies chills, Denies fatigue, Denies fever(s), Denies headache(s), Denies malaise and Denies weakness Eyes: Eyes: Denies blurry vision, Denies irritation and Denies loss of vision ENT: Denies otalgia, Denies headache(s), Denies nasal discharge, Denies sinus pain and Denies sore throat Cardiovascular: Cardiovascular: Denies chest pain, Denies irregular heart rhythm and Denies dyspnea Respiratory: Respiratory: Denies dyspnea Gastrointestinal: Gastrointestinal: Denies abdominal pain, Denies melena, Denies hematochezia, Denies diarrhea, Denies nausea and Denies vomiting Musculoskeletal: Musculoskeletal: Denies back pain, Denies myalgias, Denies arthralgias and Reports muscle cramps Integumentary/Breasts: Skin/Breast: Denies pruritus and Denies rash Neurologic: Denies headache(s), Denies loss of vision and Denies weakness Psychiatric: Psychiatric: Reports no additional psychiatric complaints Endocrine: Endocrine: Denies fatigue PMFSH Past Medical History Medical History Cartilage disorder Constipation Interstitial cystitis Family History Family History Other No significant family history Social History Social History Smoking status: Never smoker Substance use type: marijuana Comments At time of signature, agree with nursing past medical, surgical, social and family history. There is no relevant family history pertinent to the presenting complaint. Exam Const: General: cooperative, healthy appearing, comfortable, no acute distress and well nourished Nutritional Appearance: well nourished Orientation/consciousness: patient oriented x3 Limitations: no limitations HENMT: Head: normal to inspection, normocephalic and atraumatic Ears: hearing grossly normal bilaterally and external ears normal Face/Nose/Sinus: Normal external nose present, normal facial exam and face symmetric Face and sinus: normal facial exam and face symmetric Mouth: Yes lip normal Eyes: General: appearance normal, both eyes and all related structures Alignment and Position: alignment normal and position normal Periorbital: periorbital findings normal Eyelids: eyelids normal Pupils: Equal, round and reactive pupils present EOM: EOMs intact bilaterally Neck: Neck: normal visual inspection, full ROM and supple Chest: Chest palpation & inspection: normal inspection of the chest Resp: Effort & Inspection: normal respiratory effort and able to speak in complete sentences Auscultation: clear to auscultation bilaterally Cardio: Rate: regular rate Rhythm: regular rhythm Heart sounds: S1 normal heart sound present and S2 normal heart sound present GI: Inspection: normal to inspection Skin: General skin exam: normal color and no
[2023-07-23] MEDS: IBUPROFEN 600 MG TABLET PO (19:44)
== END 2023-07-23 19:55 | disposition home or self-care (01) ==
PROVIDERS: Emergency Provider Nurse Practitioner Family; PCP Family Medicine
DX: S76.912A Strain of unspecified muscles, fascia and tendons at thigh level, left thigh, initial encounter (principal); X58.XXXA Exposure to other specified factors, initial encounter; Y93.02 Activity, running; Y99.0 Civilian activity done for income or pay; F12.90 Cannabis use, unspecified, uncomplicated
CPT/HCPCS: 99213; A9270; G0463

== ENCOUNTER 2024-01-19 14:52 | Emergency (ER) | payer OTHER, MEDICAID, SELFPAY ==
[2024-01-19 14:57] VITALS: BP 111/67; PULSE 63; RESP 16; TEMP 36.6; O2SAT 100
--- NOTE | 2024-01-19 15:18 | ED_ITS ---
HPI - Back Pain/Injury General Chief Complaint: Back Pain/Injury Stated Complaint: lower back pain/needs work note Source: patient Mode of arrival: ambulatory Limitations: no limitations History of Present Illness HPI Narrative: 23-year-old female presented for complaint of right lower back pain. Onset yesterday. Pain started after she pulled heavy bag of trash out of a can, using a twisting motion, and felt a pull in the right lower back. Endorses a history of SI joint pain during and states this feels similar. Pain radiates into the buttock and behind the knee. has taken ibuprofen, applied ice and heat, and using Biofreeze patch. Denies numbness, tingling, weakness of the lower extremities, or change in gait, saddle paresthesia or loss of bowel or bladder. Related Data Home Medications Medication Instructions Recorded Confirmed etonogestrel 68 mg subdermal 1 implant subdermal ONCE 07/16/21 01/19/24 implant (Nexplanon) Allergies Allergy/AdvReac Type Severity Reaction Status Date / Time latex Allergy Anaphylaxis Verified 01/19/24 15:11 Review of Systems Review of Systems: CONSTITUTIONAL: Denies body aches, fever, chills RESPIRATORY: Denies cough or dyspnea. GASTROINTESTINAL: Denies abdominal pain, nausea, vomiting, or diarrhea. SKIN: Denies rash, itching, or wounds. MUSCULOSKELETAL: reports back pain NEUROLOGIC: Denies headache, numbness, tingling, or weakness. All systems reviewed & are unremarkable except as noted in HPI and below PMFSH Past Medical History Medical History Cartilage disorder Constipation Interstitial cystitis Family History Family History Other No significant family history Social History Social History Smoking status: Never smoker Substance use type: marijuana Comments At time of signature, I have reviewed and agree with nursing past medical, surgical, social and family history unless otherwise noted. Please see nursing chart for further information. There is no relevant family history pertinent to the presenting complaint Exam Narrative: GENERAL: Well-appearing CHEST: Speaks in full sentences. No respiratory distress. HEART: Regular rate and rhythm. Normal and equal peripheral pulses. MUSC: No Vertebral point tenderness or lumbar paraspinal tenderness. Tender with palpation into the right posterior hip/buttock. BLEs with normal strength and sensation, normal range of motion to BLEs. No open wounds, or obvious defor mity; alignment normal, pulse palpable and equal bilaterally, skin warm, dry, pink. Capillary refill less than 3 seconds. Gait steady. SKIN: Warm, dry, no rash. NEURO: Alert and oriented x3. Course Course Emergency Course: Patient is aware of diagnosis, understands and agrees to treatment plan. Anticipatory guidance given. Patient agrees to follow-up as directed and is aware of reasons to seek care at the emergency department. Portions of this record may have been created with voice recognition software Level of Care: Express Care Visit Vital Signs Vital signs: Vital Signs Temperature 97.9 F 01/19/24 14:57 Pulse Rate 63 01/19/24 14:57 Respiratory Rate 16 01/19/24 14:57 Blood Pressure 111/67 01/19/24 14:57 Pulse Oximetry 100 01/19/24 14:57 Oxygen Delivery Room Air 01/19/24 14:57 Temperature 97.9 F 01/19/24 14:57 Pulse Rate 63 01/19/24 14:57 Respiratory Rate 16 01/19/24 14:57 Blood Pressure 111/67 01/19/24 14:57 Pulse Oximetry 100 01/19/24 14:57 Oxygen Delivery Room Air 01/19/24 14:57 Reviewed MDM - Back Pain/Injury MDM Narrative Medical decision making narrative: Discussed physical exam findings and reviewed prescriptions with patient. Advised supportive measures and s/s to go to the ER. Pt is stable and appropriate for outpt treatment and follow up with pcp. Differential Diagnosis Differential diagnosis: Likely lumbar radiculopathy, sciatica, strain of lumbar region, renal colic, pyelonephritis and discitis Discharge Plan Discharge Clinical Impression: Lumbar radiculopathy Patient Disposition: Home, Self-Care Condition: Stable Instructions: Acute Low Back Pain (ED) Additional Instructions: Avoid lifting. pushing. pulling, or anything that worsens the pain. Walking and other gentle exercising several times a week has been shown to improve back pain; bed rest is not recommended. Take steroid as directed along with Tylenol 1000mg every 8 hours Take muscle relaxers every 8 hours as needed for muscle spasm- do not drive or make any important decisions while on this medication for it can make you drowsy. Over the counter pain cream like icy/hot or biofreeze, or Salon pas/lidocaine 4% patch. You may apply heat or cold to the area as needed. Please follow up with your Primary Care Doctor within 72 hours - call for an appointment. If you experience any worsening pain, swelling, numbness, weakness, problems with bladder or bowel function, weakness or loss of feeling in one or both of your legs, or any other serious concerns. Prescriptions: New cyclobenzaprine 10 mg tablet 10 mg PO TID PRN (Reason: muscle spasm) Qty: 10 0RF methylprednisolone [Medrol (Arturo)] 4 mg tablets,dose pack See Rx Instructions .ROUTE .COMPLEX Qty: 21 0RF Rx Instructions: orally per package directions No Action Nexplanon 68 mg Implant 1 implant SUBDERMAL ONCE Rx Instructions: as prescribed Follow-up/Referrals: Britatny,Ludivina Gtz MD [Primary Care Provider] - Stand Alone Forms: Work/School Release IP
== END 2024-01-19 15:27 | disposition home or self-care (01) ==
PROVIDERS: Emergency Provider Nurse Practitioner Family; PCP Family Medicine
DX: M54.16 Radiculopathy, lumbar region (principal); F12.90 Cannabis use, unspecified, uncomplicated
CPT/HCPCS: 99213; G0463

== ENCOUNTER 2024-04-21 12:34 | Emergency (ER) | payer OTHER, MEDICAID, SELFPAY ==
--- OUTSIDE RECORDS SUMMARY | 2024-04-21 12:36 | XMS_ITS | Referral Summary ---
Author Organization [facility] Address [address] [place] [address] Care Team Providers Care Roller Machine Operator Name Role Phone Ludivina Soto MD Primary Care Provider [phone] Allergies Active Allergy Reactions Criticality Noted Date Comments Latex Rash Medium 12/27/2018 Medications sertraline (ZOLOFT) 100 mg tablet Take 100 mg by mouth nightly 12/07/19 20 Active etonogestreL (NEXPLANON) 68 mg implantIndications : Contraception Active temazepam (RESTORIL) 30 mg capsuleIndications :Insomnia Take 1 capsule (30 mg total) by mouth nightly as needed for sleep 10 capsule 02/01/20 20 Active hydrOXYzine (VISTARIL) 50 mg capsule Take 1 capsule (50 mg total) by mouth 3 (three) times a day as needed for itching or anxiety (sleep) 30 capsule 02/01/20 20 Active ibuprofen (ADVIL,MOTRIN) 800 mg tablet Take 1 tablet (800 mg total) by mouth 3 (three) times a day 21 tablet 02/01/20 20 Active ondansetron ODT (ZOFRAN-ODT) 4 mg disintegrating tablet Dissolve 1 tablet oral every 4 hours as needed for nausea or vomiting. 15 tablet 03/14/20 20 Active phenazopyridine (PYRIDIUM) 200 mg tablet Take 1 tablet (200 mg total) by mouth 3 (three) times a day 6 tablet 04/21/19 21 Active morphine (MSIR) 15 mg tabletIndications: Severe Pain Take 0.5 tablets (7.5 mg total) by mouth every 4 (four) hours as needed for pain (Severe breakthrough pain) 9 tablet 05/16/19 21 Active docusate sodium (COLACE) 100 mg capsuleIndications :constipation Take 1 capsule (100 mg total) by mouth 2 (two) times a day as needed for constipation 60 capsule 05/16/19 21 Active amoxicillin-clavul anate (AUGMENTIN) 875-125 mg per tablet Take 1 tablet by mouth every 12 (twelve) hours 14 tablet 08/27/19 24 Active HYDROcodone-acetam inophen (NORCO) 5-325 mg per tabletIndications: Pain Take 1 tablet by mouth every 6 (six) hours as needed for pain 15 tablet 08/27/19 24 Active Active Problems Problem Noted Date Diagnosed Date Acute pharyngitis 07/18/2019 Sinus congestion 07/18/2019 History of fever 07/18/2019 Acute chest wall pain 07/18/2019 Educated about COVID-19 virus infection 07/18/19 20 Social History Tobacco Use Types Packs/Day Years Used Date Smoking Tobacco: Some Days Smokeless Tobacco: Never Comments:vape Alcohol Use Standard Drinks/Week Comments Yes 0 (1 standard drink = 0.6 oz pur e alcohol) occasional Personal Safety Answer Date Recorded Have you ever been in or are you currently in a harmful physical or emotional relationship or is someone making you feel afraid or unsafe? 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 Gender Identity Not on file Sexual Orientation Not on file Last Filed Vital Signs Vital Sign Reading Time Taken Comments Blood Pressure 112/63 09/23/2023 12:15 PM CDT Pulse 111 09/23/2023 12:15 PM CDT Temperature 36.8 C (98.3 F) 09/23/2023 12:15 PM CDT Respiratory Rate 16 09/23/2023 12:15 PM CDT Oxygen Saturation 100% 09/23/2023 12:15 PM CDT Inhaled Oxygen Concentration - - Weight 45.4 kg (100 lb) 09/23/2023 12:15 PM CDT Height 160 cm (5' 3 ) 08/27/2023 9:10 AM CDT Body Mass Index 17.71 08/27/2023 9:10 AM CDT Plan of Treatment Not on file Procedures Procedure Name Priority Date/Time Associated Diagnosis Comments N. GONORRHOEAE/C. TRACHOMATIS AMPLIFICATION STAT 08/27/2023 12:28 PM CDT from Last 3 Months or Most Recently Relevant to Health Maintenance Results * (ABNORMAL) N. gonorrhoeae/C. trachomatis Amplification Urine (08/27/2023 12:28 PM CDT) C. trachomatis Detected(A) Not Detected N. gonorrhoeae Not Detected Not Detected VILMA RANKIN (DEANNA) Comment: Interpretive Data This assay detects Chlamydia trachomatis and Neisseria gonorrhoeae by nucleic acid amplification testing (NAAT). This assay has been cleared by the [place] Food and Drug administration. The performance characteristics of this test have been verified by the [facility]. The performance characteristics of this test have not been evaluated in individuals less than 14 years of age. Current Interpretive Data last revised 2023. Urine (None) 08/27/2023 12:2 8 PM CDT 08/27/2023 1:06 PM CDT Israel Islas MD LAB MICROBIOLOGY - GENERAL ORDERABLES Final Result VILMA RANKIN (DEANNA) [address] [facility] Department [place] [address] from Last 3 Months or Most Recently Relevant to Health Maintenance Insurance IDPA [facility] CORE [facility] HMO/PPO Address: [address] [address] [place] [address] Care Teams Roller Machine Operator Relationship Specialty Start Date End Date Ludivina Soto MD [address] [place] [address] PCP - General 07/18/19
--- OUTSIDE RECORDS SUMMARY | 2024-04-21 12:36 | XMS_ITS | Encounter Summary ---
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
--- OUTSIDE RECORDS SUMMARY | 2024-04-21 12:36 | XMS_ITS | Encounter Summary ---
Author Organization [facility] Healthcare Address [address] [place] [address] Care Team Providers Care Fur Dry Cleaner Name Role Phone Ludivina Soto MD Primary Care Provider [phone] Encounter Details Date Type Department Care Team (Late st Contact Info) Description 07/19/2019 Telephone [facility] [address] [place] [address] [place] [address] [address] [address] Social History Tobacco Use Types Packs/Day Years Used Date Smoking Tobacco: Some Days Smokeless Tobacco: Never Comments:vape Alcohol Use Standard Drinks/Week Comments Yes 0 (1 standard drink = 0.6 oz pur e alcohol) occasional Comments Yes Sex and Gender Information Value Date Recorded Sex Assigned at Not on file Legal Sex Female 9:18 PM CABINET MOUNTER Gender Identity Not on file Sexual Orientation Not on file documented as of this encounter Plan of Treatment Not on file documented as of this encounter Visit Diagnoses Not on filedocumented in this encounter Additional Health Concerns Infection Onset Date Last Indicated Resolved Time COVID: Suspected 07/18/2019 07/18/2019 07/19/2019 8:39 PM CDT Respiratory Infection (EDITH), contact + droplet Comment:Automatically added due to negative COVID-19 result. 07/19/2019 07/19/2019 08/02/2019 3:0 6 AM CDT COVID: Suspected 03/14/2020 03/14/2020 03/15/2020 12:56 AM CABINET MOUNTER Respiratory Infection (EDITH), contact + droplet Comment:Automatically added due to negative COVID-19 result. 03/15/2020 03/15/2020 03/29/2020 3: 05 AM CABINET MOUNTER documented as of this encounter Care Teams Fur Dry Cleaner Relationship Specialty Start Date End Date Ludivina Soto MD [address] [place] [address] [place] [address] PCP - General 07/18/19 documented as of this encounter
--- OUTSIDE RECORDS SUMMARY | 2024-04-21 12:36 | XMS_ITS | Clinical Summary ---
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 Gender Identity Not on file Sexual Orientation Not on file Obstetrics History Para Term AB IAB SAB Ectopic Multiple Livin g Live Births 1 0 0 0 0 0 0 0 0 0 0 Date Outcome GA Total Labor Labor/2nd/3rd Weight Sex Type Anes PTL Vy A1 A5 Name Clin Last Filed Vital Signs Vital Sign Reading [...] 08/27/2023 9:10 AM CDT Plan of Treatment Health Maintenance Due Date Last Done Comments Cervical Cancer Screening 2000 Depression Screening 2000 Hepatitis C Screening 2000 Varicella Vaccines (2 of 2 - 2-dose childhood series) 2004 05/18/2001 Pneumococcal vaccine <65 (1 of 2 - PCV) 2006 HPV Vaccines (1 - 3-dose series) 2015 Meningococcal B Vaccine (1 o f 2 - Patient Seeks Protection) 2016 Regular Well Visit/Exam 18-64 2018 Influenza Vaccine (#1) 2023 01/12/2017 Chlamydia and Gonorrhea (GC/ CT) Screening 08/26/2024 08/27/2023 DTaP/Tdap/Td Vaccine (7 - Td or Tdap) 09/16/2027 09/15/2017, 10/17/2011, 10/11/2004, Additional history exists Hepatitis B Screening Completed 03/22/2001 , 2000, 2000 Procedures Procedure Name Priority Date/Time Associated Diagnosis Comments N. GONORRHOEAE/C. TRACHOMATIS AMPLIFICATION STAT 08/27/2023 12:28 PM CDT from Last 3 Months or Most Recently Relevant to Health Maintenance Results * (ABNORMAL) N. gonorrhoeae/C. trachomatis Amplification Urine (08/27/2023 12:28 PM CDT) C. trachomatis Detected(A) Not Detected N. gonorrhoeae Not Detected Not Detected [facility]ANKIN ([place]) Comment: Interpretive Data This assay detects Chlamydia trachomatis and Neisseria gonorrhoeae by nucleic acid amplification testing (NAAT). This assay has been cleared by the [place] Food and Drug administration. The performance characteristics of this test have been verified by the [facility]. The performance characteristics of this test have not been evaluated in individuals less than 14 years of age. Current Interpretive Data last revised 2023. Urine (None) 08/27/2023 12:2 8 PM CDT 08/27/2023 1:06 PM CDT us Israel Islas MD LAB MICROBIOLOGY - GENERAL ORDERABLES Final Result [facility]) 1 [facility] Department of Laboratories [place] [id number] from Last 3 Months or Most Recently Relevant to Health Maintenance Insurance [facility] Care Teams Gas Turbine Powerplant Mechanic Helper Relationship Specialty Start Date End Date Ludivina Soto MD [address] [place] [address] PCP - General 07/18/19
--- OUTSIDE RECORDS SUMMARY | 2024-04-21 12:36 | XMS_ITS | Clinical Summary ---
Author Organization [facility] Address [facility] [place] [address] Care Team Providers Care Mental Hygienist Name Role Phone Ludivina Soto MD Primary Care Provider [phone] Allergies Active Allergy Reactions Criticality Noted Date Comments Latex Rash Low 08/17/2019 Medications Blood Pressure Monitoring (BLOOD PRESSURE MONITOR/M CUFF) Misc 1 kit by Does not apply route 2 (two) times daily. 1 each 0 Active ibuprofen 800 MG tablet Take 800 mg by mouth every 6 (six) hours as needed for Pain. Active etonogestrel (NEXPLANON) 68 MG SC implant 1 each by Implant route once. Active metoclopramide (REGLAN) 5 MG tablet Take 1 tablet (5 mg total) by mouth 3 (three) times daily as needed. 4 Active ondansetron (ZOFRAN) 4 MG tablet Take 1 tablet (4 mg total) by mouth every 8 (eight) hours as needed for Nausea. Active ondansetron (ZOFRAN-ODT) 4 MG disintegrating tablet DISSOLVE 1 TABLET IN MOUTH THREE TIMES DAILY NEEDED 4 Active Active Problems Problem Noted Date Diagnosed Date labor (HHS/HCC) 11/28/2019 Encounters Date Type Department Care Team Description 01/29/[address] [facility] [place] [address] [address] Claudia Wong NP 01/28/2024 4:44 PM REFERENCE LIBRARIAN - 01/28/2024 11:59 PM REFERENCE LIBRARIAN Hospital [place] [address] Ludivina Soto MD Discharge Disposition: Home or Self Care (Routine Discharge) 01/28/2024 Orders Only [facility] [address] [place] [address] Claudia Wong NP 01/28/2024 Travel from Last 3 Months Social History Tobacco Use Types Packs/Day Years Used Date Smoking Tobacco: Every Day Electronic Cigarettes Smokeless Tobacco: Never Tobacco Cessation:Ready to Q uit: Not Asked; Counseling Given: Not Answered Alcohol Use Standard Drinks/Week Comments Not Currently 0 (1 standard drink = 0.6 oz pur e alcohol) Humiliation, Afraid, Rape, and Kick questionnair e Answer Date Recorded Within the last year, have y ou been afraid of your partner or ex-partner? Patient declined 11/28/2019 Within the last year, have y ou been humiliated or emotionally abused in other ways by your partner or ex-partner? Patient declined 11/28/2019 Within the last year, have y ou been kicked, hit, slapped, or otherwise physically hurt by your partner or ex-partner? Patient declined 11/28/2019 Within the last year, have y ou been raped or forced to have any kind of sexual activity by your partner or ex-partner? Patient declined 11/28/2019 Social Connection and Isolation Panel [NHANES] A nswer Date Recorded In a typical week, how many times do you talk on the phone with family, friends, or neighbors? Patient declined 11/28/2019 How often do you get togethe r with friends or relatives? Patient declined 11/28/2019 How often do you attend oriental orthodox or denominational serv ices? Patient declined 11/28/2019 Do you belong to any clubs o r organizations such as oriental orthodox groups, unions, fraternal or athletic groups, or school groups? Patient declined 11/28/2019 How often do you attend meet ings of the clubs or organizations you belong to? Patient declined 11/28/2019 Are you , , di vorced, , never , or living with a partner? Patient declined 11/28/2019 Overall Financial Resource Strain (CARDIA) Answe r Date Recorded How hard is it for you to pa y for the very basics like food, housing, medical care, and heating? Patient declined 11/28/2019 [facility] [place] of Occupat ional Health - Occupational Stress Questionnaire Answer Date Recorded Do you feel stress - tense, restless, nervous, or anxious, or unable to sleep at night because your mind is troubled all the time - these days? Patient declined 11/28/2019 Exercise Vital Sign Answer Date Recorde d On average, how many days pe r week do you engage in moderate to strenuous exercise (like a brisk walk)? Patient declined On average, how many minutes do you engage in exercise at this level? Patient declined 11/28/2019 Hunger Vital Sign Answer Date Recorded Within the past 12 months, y ou worried that your food would run out before you got the money to buy more. Patient declined Within the past 12 months, t he food you bought just didn't last and you didn't have money to get more. Patient declined PRAPARE - Transportation Answer Date Re corded In the past 12 months, has l ack of transportation kept you from medical appointments or from getting medications? Patient declined 11/28/2019 In the past 12 months, has l ack of transportation kept you from meetings, work, or from getting things needed for daily living? Patient declined 11/28/2019 Comments No Sex and Gender Information Value Date Recorded Sex Assigned at Not on file Legal Sex Female 5:49 PM REFERENCE LIBRARIAN Gender Identity Not on file Sexual Orientation Not on file Last Filed Vital Signs Vital Sign Reading Time Taken Comments Blood Pressure 105/76 10/02/2023 4:14 PM CDT Pulse 92 10/02/2023 4:45 PM CDT Temperature 36.8 C (98.3 F) 10/02/2023 7:18 PM CDT Respiratory Rate 20 10/02/2023 4:45 PM CDT Oxygen Saturation 100% 10/02/2023 4:45 PM CDT Inhaled Oxygen Concentration - - Weight 45.8 kg (101 lb) 10/02/2023 4:14 PM CDT Height 160 cm (5' 3 ) 10/02/2023 4:14 PM CDT Body Mass Index 17.89 10/02/2023 4:14 PM CDT Plan of Treatment Health Maintenance Due Date Last Done Comments Annual Physical 2003 Pneumococcal Vaccine: Pediatrics (0 to 5 Years) and At-Risk Patients (6 to 64 Years) (1 of 2 - PCV) 2006 DTaP, Tdap and Td Vaccines (5 - Tdap) 2011 10/11/2004, 11/04/2001, 03/22/2001, Additional history exists HPV Vaccines (1 - 3-dose series) 2015 Meningococcal B Vaccine (1 of 2 - Standard) 2016 Hepatitis C 2018 Cervical Cancer Screening Pap Smear (Age 21 to 29) Every 3 Years 04/24/2019 04/24/2016 Cervical Cancer Screening 04/24/2019 Hepatitis B Vaccines (1 of 3 - 19+ 3-dose series) 2019 Chlamydia Screening Females ages 16-24 11/27/2020 11/28/2019, 04/24/2016 COVID-19 Vaccine ( - 2023- season) 2023 Influenza Adult (#1) 2023 Meningococcal Vaccine Completed 09/15/2017, 012 RSV Immunizations Under 20 Months Aged Out No longer eligible based on patient's age to complete this topic Procedures Procedure Name Priority Date/Time Associated Diagnosis Comments RUBELLA IGG Routine 01/28/2024 4:43 PM REFERENCE LIBRARIAN Pre-employment examination MUMPS AB IGG Routine 01/28/2024 4:43 PM REFERENCE LIBRARIAN Pre-employment health screening examination RUBEOLA ANTIBODY IGG/IGM Routine 01/28/2024 4:43 PM REFERENCE LIBRARIAN Pre-employment health screening examination TBGOLD-TUBERCULOS IS TST CELL MEDIATED IMMUNITY Routine 01/28/2024 4:43 PM REFERENCE LIBRARIAN Pre-employment health screening examination CHLAMYDIA GC RNA Nurse Collected Priority 11/28/2019 10:20 PM CDT Labor (Hhs/Hcc) from Last 3 Months or Most Recently Relevant to Health Maintenance Results * MUMPS AB IGG (01/28/2024 4:43 PM REFERENCE LIBRARIAN) MUMPS IGG AB POSITIVE 02/01/2024 2:58 PM REFERENCE LIBRARIAN [facility] Comment:IN THE ABSENCE OF AC [place]AK[place] SYMPTOMS, A POSITIVE RESULT SUGGESTS PAST IMMUNITY. 01/28/2024 4:43 PM REFERENCE LIBRARIAN Claudia Sherwoodmian JONH LABORATORY Final Result [facility] [address] [place] [address], [id number] * (ABNORMAL) RUBEOLA ANTIBODY IGG/IGM (01/28/2024 4:43 PM REFERENCE LIBRARIAN) RUBEOLA IGG >300.00(H ) AU/mL 02/02/2024 3:15 PM REFERENCE LIBRARIAN [facility] Comment: AU/mL Interpretation ===== <13.50 Negative 13.50 - 16.49 Equivocal >16.49 Positive The presence of measles IgG suggests immunization or past or current infection with measles virus. For additional information, please refer to http://education.Trigence/faq/NTZ893 (This link is being provided for informational/ educational purposes only.) MEASLES AB IGM <1:20 titer 02/02/2024 3:15 PM REFERENCE LIBRARIAN [facility] Comment: Titer Interpretation <1:20 Antibody Not Detected > or =1:20 Antibody Detected The traditional serologic diagnosis of measles requires a significant rise in antibody titer between acute and convalescent sera. However, detection of IgM antibody in a single specimen may indicate acute disease. Correct interpretation of serologic data depends upon the proper timing of specimen collection in relation to rash onset. This timing is particularly important for interpreting negative IgM results, since IgM antibody peaks approximately 10 days after rash onset and is usually undetectable 30 days after rash onset. This test was developed and its analytical performance characteristics have been determined by [employer], [place], [place]. It has not been cleared or approved by the U.S. Food and Drug Administration. This assay has been validated pursuant to the CLIA regulations and is used for clinical purposes. For additional information, please refer to http://education.[employer].Dada/faq/LMD438 (This link is being provided for informational/ educational purposes only.) Test Performed by [facility] [employer] [facility], [address] [place] [address] Victor Manuel Baxter M.D., Ph.D., Director of Laboratories , [facility] [id number] 01/28/2024 4:43 PM REFERENCE LIBRARIAN Claudia Wong NP LABORATORY Final Result Performing Organization Address City/[facility]/ZIP Co de Phone Number [facility] [address] , [place] [phone] * QUANTIFERON TBGOLD TUBERCULOSIS TEST (01/28/2024 4:43 PM REFERENCE LIBRARIAN) TB1 AG MINUS NIL 0.03 IU/ML 01/29/20 2:[address] [facility] TB2 AG MINUS NIL 0.03 IU/ML 01/29/20 2:[address] [facility] TB QUANTIFERON NEGATIVE NEGATIVE 01/29/2024 2:[address] [facility] TB INTERPRETATION M. tuberculosis infection unlikely but cannot be excluded especially when any illness is consistent with TB disease and/or likelihood of progression to disease is increased. In patients at high risk to M. tuberculosis infection, a second test should be considered. 01/29/2024 2:[address] [facility] 01/28/2024 4:43 PM REFERENCE LIBRARIAN us Claudia Wong NP LABORATORY Final Result [facility] [address] [place] [address], [place] [phone] [id number] * RUBELLA IGG (01/28/2024 4:43 PM REFERENCE LIBRARIAN) RUBELLA IGG AB POSITIVE 02/01/2024 2:[address] [facility] Comment:IN THE ABSENCE OF AC SHAKTOOLIK SYMPTOMS, A POSITIVE RESULT SUGGESTS PAST IMMUNITY. 01/28/2024 4:43 PM REFERENCE LIBRARIAN Claudia Wong NP LABORATORY Final Result Performing Organization Address [facility] Co de Phone Number [facility] [address] [place] [address], [phone] * CHLAMYDIA GC RNA (11/28/2019 10:20 PM CDT) SPECIMEN CERVIX 11/28/2019 10:[address] [facility] CHLAMYDIA RNA TMA NEGATIVE NEGATIVE 020 4:56 PM CDT [facility] Comment:PERFORMED BY NUCLEIC ACID AMPLIFICATION N.GONORRHOEAE RNA TMA NEGATIVE NEGATIVE 11/29/2019 4:56 PM CDT [facility] Comment:PERFORMED BY NUCLEIC ACID AMPLIFICATION CERVIX UTERI STRUCTURE / Unknown 11/28/2019 10:20 PM CDT Anay Pillai MD MICROBIOLOGY - GENERAL ORDERABL ES Final Result Performing Organization Address [facility] de Phone Number [facility] [address] [place] [address], [facility] [address] [place] [address], [id number] from Last 3 Months or Most Recently Relevant to Health Maintenance Insurance MEDICAID [employer] Advance Directives * Full Code (Latest Code Status on File) Date Activated Date Inactivated Comments 12/03/2019 6:36 PM 12/07/2019 1:44 PM * Full Code Date Activated Date Inactivated Comments 12/03/2019 4:29 PM 12/03/2019 6:36 PM * Full Code Date Activated Date Inactivated Comments 11/28/2019 10:30 PM 12/03/2019 4:28 PM * Full Code Date Activated Date Inactivated Comments 11/27/2019 11:52 PM 11/28/2019 4:59 AM * Full Code Date Activated Date Inactivated Comments 10/25/2019 2:11 PM 10/25/2019 8:26 PM Care Teams Mental Hygienist Relationship Specialty Start Date End Date Ludivina Soto MD [address] [address] PCP - General FAMILY PRACTICE 08/26/18
[2024-04-21 13:01] VITALS: BP 121/74; PULSE 106; RESP 16; TEMP 37.8; O2SAT 100
--- NOTE | 2024-04-21 13:57 | ED.URI ---
HPI - URI/Sore Throat General Chief Complaint: Upper Respiratory Infection Stated Complaint: Chest Pain/Shortness of Breath/Cough Time Seen by Provider: 04/21/24 13:57 Source: patient Mode of arrival: ambulatory Limitations: no limitations History of Present Illness HPI Narrative: 23 year old female presented for complaint of cough, fever, chest tightness with deep breaths. onset 3 days. Endorses temp up to 101. Feet does like she can not get a full deep breath. Denies nausea, vomiting, diarrhea or lethargy. 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 Related Data Home Medications ?Medication ?Instructions ?Recorded ?Confirmed ?Last Taken ?Type etonogestrel 68 mg subdermal 1 implant subdermal ONCE 07/16/21 01/19/24 Unknown History implant (Nexplanon) Allergies Allergy/AdvReac Type Severity Reaction Status Date / Time latex Allergy Anaphylaxis Verified 04/21/24 13:17 Review of Systems Review of Systems: CONSTITUTIONAL: Reports body aches, fever, chills, or sweats. EYES: Denies visual changes, redness, or discharge. ENT: Denies rhinorrhea, congestion, sore throat, or otalgia. CARDIOVASCULAR: Denies chest pain, palpitations, or edema. RESPIRATORY: Reports cough, Denies sob, wheezing. GASTROINTESTINAL: Denies abdominal pain, nausea, vomiting, or diarrhea. NEUROLOGIC: Denies headache, numbness, tingling, or weakness. PSYCH: Denies depression or anxiety. All systems reviewed & are unremarkable except as noted in HPI and below PMFSH Past Medical History Medical History Cartilage disorder Constipation Interstitial cystitis Family History Family History Other No significant family history Social History Social History Smoking status: Never smoker Substance use type: marijuana Comments At time of signature, I have reviewed and agree with nursing past medical, surgical, social and family history unless otherwise noted. Please see nursing chart for further information. There is no relevant family history pertinent to the presenting complaint Exam Narrative: GENERAL: mildly ill-appearing, in no acute distress. EYES: EOMI. No redness or drainage. Conjunctivae normal. ENT: Mucous membranes pink and moist. No rhinorrhea. TMs normal bilaterally. Throat normal. Uvula midline. NECK: Normal AROM. Supple. CHEST: No respiratory distress. lungs clear diminished HEART: Regular rate and rhythm. No murmur appreciated. ABDOMEN: Soft, nontender, nondistended, normal active bowel sounds. EXTREMITIES: Normal range of motion. No edema. SKIN: Warm, dry, no rash. Capillary refill normal. Normal skin turgor. NEURO: Alert and oriented x3. Gait steady. PSYCH: Normal affect. Course Course Emergency Course: Patient is aware of diagnosis, understands and agrees to treatment plan. Anticipatory guidance given. Patient agrees to follow-up as directed and is aware of reasons to seek care at the emergency department. Portions of this record may have been created with voice recognition software Level of Care: Express Care Visit Vital Signs Vital signs: Vital Signs Temperature 100.1 F H 04/21/24 13:01 Pulse Rate 106 H 04/21/24 13:01 Respiratory Rate 16 04/21/24 13:01 Blood Pressure 121/74 04/21/24 13:01 Pulse Oximetry 100 04/21/24 13:01 Oxygen Delivery Room Air 04/21/24 13:01 Temperature 100.1 F H 04/21/24 13:01 Pulse Rate 106 H 04/21/24 13:01 Respiratory Rate 16 04/21/24 13:01 Blood Pressure 121/74 04/21/24 13:01 Pulse Oximetry 100 04/21/24 13:01 Oxygen Delivery Room Air 04/21/24 13:01 MDM - URI/Sore Throat MDM Narrative Medical decision making narrative: negative Strep flu and COVID. Discussed physical exam findings. Advised supportive measures and signs/symptoms to go to the ER. Pt is appropriate for outpt treatment and f/u. Differential Diagnosis Differential diagnosis: Likely upper respiratory infection, otitis media, sinusitis, viral infection, bronchitis and other ( pneumonia) Lab Data Labs: Lab Results 04/21/24 Range/Units 14:16 POC Influenza A Ag Negative (Negative) POC Influenza B Ag Negative (Negative) POC SARS CoV-2 Ag Negative (Negative) POC Grp A Strep Screen Negative (Negative) Discharge Plan Discharge Clinical Impression: Bronchitis Patient Disposition: Home, Self-Care Condition: Stable Instructions: Antibiotic Form, Acute Bronchitis (ED) Additional Instructions: Pneumonia is a lung infection that can cause a fever, cough, and trouble breathing. How it spreads: When someone with bacterial pneumonia coughs, sneezes, or talks, they release respiratory droplets into the air that can be inhaled by others.?You can also get pneumonia by touching a contaminated surface or object and then touching your mouth or nose. You're generally contagious for around 48 hours after starting antibiotics and your fever goes away.? To prevent the spread of pneumonia, you can:? ? Get vaccinated? ? Wash your hands often with soap and water for 20 seconds? ? Cover your mouth with a tissue when you cough or sneeze? ? Avoid people who are already sick with pneumonia? ? Stay home when you have pneumonia Take antibiotics as directed until complete. eat small frequent meals. Get lots of rest and drink fluids. Alternate Tylenol and ibuprofen for pain/fever Edrl-osq-[id number] cough medication can cause drowsiness, take according to package directions If you have nasal congestion, you can take Zyrtec, Claritin along with Flonase spray Call your Primary Care Doctor and make a follow-up appointment in 3 days. Go to the ER for worsening symptoms or concerns Patient Language: Solomon Islander Prescriptions: New prednisone 20 mg tablet 40 mg PO DAILY 5 Days Qty: 10 0RF albuterol sulfate 90 mcg/actuation HFA aerosol inhaler 2 inh inhalation QID PRN (Reason: shortness of breath or wheezing) Qty: 8.5 0RF azithromycin [Zithromax Z-Arturo] 250 mg tablet See Rx Instructions .ROUTE .COMPLEX Qty: 6 0RF Rx Instructions: For 250 mg dose pack: take 500 mg today (day 1), then 250 mg for 4 days (days 2-5) No Action Nexplanon 68 mg Implant 1 implant SUBDERMAL ONCE Rx Instructions: as prescribed cyclobenzaprine 10 mg tablet 10 mg PO TID PRN (Reason: muscle spasm) Qty: 10 0RF methylprednisolone [Medrol (Arturo)] 4 mg tablets,dose pack See Rx Instructions .ROUTE .COMPLEX Qty: 21 0RF Rx Instructions: orally per package directions Follow-up/Referrals: Brittany,Ludivina Gtz MD [Primary Care Provider] -
[2024-04-21 14:17] LABS: EDCOVIDSCREEN Negative (Negative); EDINFLUASCREEN Negative (Negative); EDINFLUBSCREEN Negative (Negative); EDSTREPNEGPOS1 Negative (Negative)
== END 2024-04-21 14:45 | disposition home or self-care (01) ==
PROVIDERS: Emergency Provider Nurse Practitioner Family; PCP Family Medicine
DX: J40 Bronchitis, not specified as acute or chronic (principal); Z20.822 Contact with and (suspected) exposure to COVID-19
CPT/HCPCS: 87081; 87426; 87804; 87880; 99213; G0463

== ENCOUNTER 2024-08-28 15:30 | Emergency (ER) | payer OTHER, MEDICAID, SELFPAY ==
[2024-08-28 15:30] VITALS: BP 107/69; PULSE 86; RESP 18; TEMP 37.2; O2SAT 100
--- OUTSIDE RECORDS SUMMARY | 2024-08-28 15:36 | XMS_ITS | Referral Summary ---
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 The performance characteristics of this test have not been evaluated in individuals less than 14 years of age. Current Interpretive Data last revised 2023. Urine (None) 08/27/2023 12:2 8 PM CDT 08/27/2023 1:06 PM CDT Israel Islas MD LAB MICROBIOLOGY - GENERAL ORDERABLES Final Result VILMA RANKIN (DEANNA) 1 [facility] [place] [address] from Last 3 Months or Most Recently Relevant to Health Maintenance Insurance IDPA [facility] CORE [facility] H[facility]/PPO Address: [address] [address] [place] [address] Care Teams Telecommunication Engineer Relationship Specialty Start Date End Date Ludivina Soto MD [address] [place] [address] PCP - General 07/18/19
--- OUTSIDE RECORDS SUMMARY | 2024-08-28 15:36 | XMS_ITS | Encounter Summary ---
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
--- OUTSIDE RECORDS SUMMARY | 2024-08-28 15:36 | XMS_ITS | Encounter Summary ---
Author Organization [facility] Address [address] [place] [address] Care Team Providers Care Manager Protein Name Role Phone Ludivina Soto MD Primary Care Provider [phone] Encounter Details Date Type Department Care Team (Late st Contact Info) Description 07/19/2019 Telephone [facility] [address] [place] [address] [place] [address] [place] [address] Social History Tobacco Use Types Packs/Day Years Used Date Smoking Tobacco: Some Days Smokeless Tobacco: Never Comments:vape Alcohol Use Standard Drinks/Week Comments Yes 0 (1 standard drink = 0.6 oz pur e alcohol) occasional Comments Yes Sex and Gender Information Value Date Recorded Sex Assigned at Not on file 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 03/15/2020 03/15/2020 03/29/2020 3:0 5 AM MUSEUM SPECIALIST documented as of this encounter Care Teams Manager Protein Relationship Specialty Start Date End Date Ludivina Soto MD [address] [place] [address] [place] [address] PCP - General 07/18/19 documented as of this encounter
--- OUTSIDE RECORDS SUMMARY | 2024-08-28 15:36 | XMS_ITS | Clinical Summary ---
Author Organization [facility] Address 1 [place] [address] Care Team Providers Care Museum Docent Name Role Phone Ludivina Soto MD Primary Care Provider [phone] Allergies Active Allergy Reactions Criticality Noted Date [...] Legal Sex Female 9:18 PM DIRECTOR OF CLINICAL SERVICES Gender Identity Not on file Sexual Orientation [...] 2 - 2-dose childhood series) 2004 05/18/2001 HPV Vaccines (1 - 3-dose series) 2015 Regular Well Visit/Exam 18-64 2018 Pneumococcal vaccine <65 (1 of 2 - PCV) 2019 Chlamydia and Gonorrhea (GC/ CT) Screening 08/26/2024 08/27/2023 Influenza Vaccine (Season Ended) 2024 01/13/20 17 DTaP/Tdap/Td Vaccine (7 - Td or Tdap) [...] gonorrhoeae Not Detected Not Detected VILMA RANKIN ([place]) Comment: Interpretive Data This assay detects Chlamydia trachomatis and Neisseria gonorrhoeae by nucleic acid amplification testing (NAAT). This assay has been cleared by the [place] Food and Drug administration. The performance characteristics of this test have been verified by the [facility]. The performance characteristics of this test have not been evaluated in individuals less than 14 years of age. Current Interpretive Data last revised 2023. Urine (None) 08/27/2023 12:2 8 PM CDT 08/27/2023 1:06 PM CDT Israel Islas MD LAB MICROBIOLOGY - GENERAL ORDERABLES Final Result [facility] DEAN[facility]) 1 [facility] [place] [address] from Last 3 Months or Most Recently Relevant to Health Maintenance Insurance [facility] Care Teams Museum Docent Relationship Specialty Start Date End Date Ludivina Soto MD [address] [place] [address] PCP - General 07/18/19
--- OUTSIDE RECORDS SUMMARY | 2024-08-28 15:36 | XMS_ITS | Clinical Summary ---
Author Organization [facility] Address [facility] [place] [address] Care Team Providers Care Garbage Pick Up Man Name Role Phone Ludivina Soto MD Primary Care Provider [phone] Allergies Active Allergy Reactions Criticality Noted Date [...] Problems Problem Noted Date Diagnosed Date labor ([facility]) 11/28/2019 Social History Tobacco Use Types Packs/Day Years [...] declined 11/28/2019 How often do you attend restorationist or episcopal serv ices? Patient declined 11/28/2019 Do you belong to any clubs o r organizations such as restorationist groups, unions, fraternal or athletic groups, or [...] medical care, and heating? 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 Gender Identity Not on file Sexual Orientation [...] 4:14 PM CDT Height 160 cm (5' 3) 10/02/2023 4:14 PM CDT Body Mass Index 17.89 10/02/2023 4:14 PM CDT Plan of Treatment Health Maintenance Due Date Last Done Comments Annual Physical 2003 DTaP, Tdap and Td Vaccines (5 - Tdap) 2011 10/11/2004, 11/04/2001, 03/22/2001, Additional history exists HPV Vaccines (1 - 3-dose series) 2015 Hepatitis C 2018 Cervical Cancer Screening Pap Smear (Age 21 to 29) Every 3 Years 04/24/2019 04/24/2016 Cervical Cancer Screening 04/24/2019 Hepatitis B Vaccines (1 of 3 - 19+ 3-dose series) 2019 Pneumococcal Vaccine: Pediatrics (0 to 5 Years) and At-Risk Patients (6 to 49 Years) (1 of 2 - PCV) 2019 Chlamydia Screening Females ages 16-24 11/27/2020 11/28/2019, 04/24/2016 COVID-19 Vaccine ( - season) 2023 Meningococcal Vaccine Completed 09/15/2017, 012 Meningococcal B Vaccine Aged Out No l onger eligible based on patient's age to complete this topic RSV Immunizations Under 20 Months Aged Out No longer eligible based on patient's age to complete this topic Procedures Procedure Name Priority Date/Time Associated Diagnosis Comments CHLAMYDIA GC RNA Nurse Collected Priority 11/28/2019 10:20 PM CDT Labor ([facility] from Last 3 Months or Most Recently Relevant to Health Maintenance Results * CHLAMYDIA GC RNA (11/28/2019 10:20 PM CDT) SPECIMEN CERVIX 11/28/2019 10:[address] [facility] CHLAMYDIA RNA TMA NEGATIVE NEGATIVE 020 4:56 PM CDT [facility] Comment:PERFORMED BY NUCLEIC ACID AMPLIFICATION N.GONORRHOEAE RNA TMA NEGATIVE NEGATIVE 11/29/2019 4:56 PM CDT [facility] Comment:PERFORMED BY NUCLEIC ACID AMPLIFICATION CERVIX UTERI STRUCTURE / Unknown 11/28/2019 10:20 PM CDT Anay Pillai MD MICROBIOLOGY - GENERAL ORDERABL ES Final Result [facility] [address] [place] [address], [facility] [address] [place] [address], [id number] from Last 3 Months or Most Recently [...] 2:11 PM 10/25/2019 8:26 PM Care Teams Garbage Pick Up Man Relationship Specialty Start Date End Date Ludivina Soto MD [address] [place] [address] PCP - General FAMILY PRACTICE 08/26/18
--- NOTE | 2024-08-28 15:37 | ED.DENTAL ---
HPI - Dental/Oral General Chief complaint: Dental/Oral Stated complaint: left jaw swelling Time Seen by Provider: 08/28/24 15:36 Source: patient Mode of arrival: ambulatory Limitations: no limitations History of Present Illness HPI Narrative: patient is a 24-year-old female with a left lower jaw mandible area swelling since 3:00 p.m. today. The area is hot and tender. She has baseline poor dentition and chronic Sasha occult dental issues. No fever or chills. No other symptoms. Onset (ago): hour(s) ( One) Duration: constant Severity: moderate Severity scale (1-10): 4 Relieving factors: nothing Exacerbating factors: nothing Context: other ( patient has acute onset of a left lower jaw / mandible pain with swelling over the past hour) Associated symptoms: other ( none) Treatment prior to arrival: none Related Data Home Medications ?Medication ?Instructions ?Recorded ?Confirmed ?Last Taken ?Type etonogestrel 68 mg subdermal 1 implant subdermal ONCE 07/16/21 01/19/24 Unknown History implant (Nexplanon) Allergies Allergy/AdvReac Type Severity Reaction Status Date / Time latex Allergy Anaphylaxis Verified 08/28/24 15:36 Review of Systems Review of Systems: All systems reviewed & are unremarkable except as noted in HPI and below Constitutional: Constitutional: Reports no additional constitutional complaints Eyes: Eyes: Reports no additional eye complaints ENT: Reports system reviewed and no additional complaints, except as documented Cardiovascular: Cardiovascular: Reports no additional cardiovascular complaints Respiratory: Respiratory: Reports no additional respiratory complaints Gastrointestinal: Gastrointestinal: Reports no additional gastrointestinal complaints Genitourinary: Genitourinary: Reports no additional female genitourinary complaints Musculoskeletal: Musculoskeletal: Reports no additional musculoskeletal complaints Integumentary/Breasts: Skin/Breast: Reports system reviewed and no additional complaints, except as docu Neurologic: Reports system reviewed and no additional complaints, except as documented Psychiatric: Psychiatric: Reports no additional psychiatric complaints Endocrine: Endocrine: Reports no additional endocrine complaints Hematologic/Lymphatic: Hematologic/Lymphatic: Reports no additional hematologic/lymphatic complaints Allergic/Immunologic: Allergic/Immunologic: Reports no additional allergic/immunologic complaints [facility] Past Medical History Medical History Cartilage disorder Constipation Interstitial cystitis Family History Family History Other No significant family history Social History Social History Smoking status: Never smoker Substance use type: marijuana Exam Const: General: healthy appearing Nutritional Appearance: well nourished Orientation/consciousness: patient oriented x3 Limitations: no limitations HENMT: Head: normal to inspection Ears: external ears normal Face/Nose/Sinus: Normal external nose present Eyes: Conjunctivae: conjunctivae normal Pupils: Equal, round and reactive pupils present EOM: EOMs intact bilaterally Neck: Neck: normal visual inspection Skin: General skin exam: normal color Rashes: rash noted Wounds: no wounds Other: left lower jaw at the mandible has an inflamed and erythema enlarged lump with tenderness in an oval shape Neuro: General: patient oriented x3 Cranial nerves: Yes Nystagmus not present Speech: normal speech Extrem: General: normal to inspection Psych: Mental Status: mental status grossly normal Affect: normal affect Attitude: cooperative Course Vital Signs Vital signs: Vital Signs Temperature 37.2 C 08/28/24 15:30 Pulse Rate 86 08/28/24 15:30 Respiratory Rate 18 08/28/24 15:30 Blood Pressure 107/69 08/28/24 15:30 Pulse Oximetry 100 08/28/24 15:30 Oxygen Delivery Room Air 08/28/24 15:30 Temperature 37.2 C 08/28/24 15:30 Pulse Rate 86 08/28/24 15:30 Respiratory Rate 18 08/28/24 15:30 Blood Pressure 107/69 08/28/24 15:30 Pulse Oximetry 100 08/28/24 15:30 Oxygen Delivery Room Air 08/28/24 15:30 MDM - Dental/Oral MDM Narrative Medical decision making narrative: patient is a 24-year-old female with a left lower jaw/ mandible enlargement over the past hour. At this time, CT scan is not needed nor labs. If she returns with continued symptoms I would suggest CT and labs. We will go with Augmentin and prednisone. Given 1 dose of Augmentin now with pharmacy is closed on Thursday afternoon. Discharge Plan Discharge Clinical Impression: Acute parotitis Patient Disposition: Home Condition: Stable Instructions: Antibiotic Form, Parotid Duct Obstruction (ED) Additional Instructions: Please follow-up with the primary doctor in the next week. Come back to the ER this area gets worse. Finish all antibiotics. Patient Language: Bulgarian Prescriptions: New amoxicillin-pot clavulanate 875-125 mg tablet 1 tablet PO BID 10 Days Qty: 20 0RF prednisone 20 mg tablet 20 mg PO DAILY 4 Days Qty: 4 0RF No Action Nexplanon 68 mg Implant 1 implant SUBDERMAL ONCE Rx Instructions: as prescribed cyclobenzaprine 10 mg tablet 10 mg PO TID PRN (Reason: muscle spasm) Qty: 10 0RF methylprednisolone [Medrol (Arturo)] 4 mg tablets,dose pack See Rx Instructions .ROUTE .COMPLEX Qty: 21 0RF Rx Instructions: orally per package directions prednisone 20 mg tablet 40 mg PO DAILY 5 Days Qty: 10 0RF albuterol sulfate 90 mcg/actuation HFA aerosol inhaler 2 inh inhalation QID PRN (Reason: shortness of breath or wheezing) Qty: 8.5 0RF azithromycin [Zithromax Z-Arturo] 250 mg tablet See Rx Instructions .ROUTE .COMPLEX Qty: 6 0RF Rx Instructions: For 250 mg dose pack: take 500 mg today (day 1), then 250 mg for 4 days (days 2-5) Follow-up/Referrals: Ludivina Soto MD [Primary Care Provider] - Time of Disposition: 15:52
[2024-08-28] MEDS: AMOXICILLIN/CLAVULANATE K 875-125 MG TAB 1 TABLET PO (16:01)
== END 2024-08-28 16:05 | disposition home or self-care (01) ==
PROVIDERS: Emergency Provider Emergency Medicine; PCP Family Medicine
DX: K11.21 Acute sialoadenitis (principal)
CPT/HCPCS: 99283; A9270

== ENCOUNTER 2024-09-25 21:06 | Emergency (ER) | payer OTHER, MEDICAID, SELFPAY ==
--- OUTSIDE RECORDS SUMMARY | 2024-09-25 21:08 | XMS_ITS | Patient Health Record ---
Author Organization [facility] Address [address] [place] [address] Support Name Relationship Address Phone ZAKI ESPINOZA Emergency Contact Unknown Unavai yoni HARRY AGUIRRE Guarantor Unknown [phone] Reason For Referral No Information Medications Medication SIG (Take, Route, Frequency, Duration) Notes Start Date End Date Status Polymyxin B-Trimethoprim 59284-8.1 UNIT/ML Ophthalmic 06/03/2023 Active Vraylar 3 mg Oral 06/03/2023 Active Ondansetron 4 MG Oral 06/03/2023 Ac tive [place] Carbonate ER 300 MG Oral 06/03/2023 Active ARIPiprazole 5 MG Oral 06/03/2023 A ctive Vraylar 1.5 mg Oral 06/03/2023 Acti ve Immunizations Vaccine Route Administration Date Status Comme nts Moderna Covid-19 Vaccine 1st dose Unknown 07/08/2020 Ad ministered Moderna Covid-19 Vaccine 1st dose Unknown 08/10/2020 Ad ministered Plan Of Treatment No Information Insurance Providers Payer Name Payer Address Payer Phone Subscriber Number Group Number Insured Name Patient Relationship to Insured Coverage Start Date Coverage End Date [facility] [address] [address] [place] [address] [id number] ZAKI ESPINOZA Natural Child - Insured has Financial Responsibility
--- OUTSIDE RECORDS SUMMARY | 2024-09-25 21:08 | XMS_ITS | Clinical Summary ---
Author Organization [facility] Address [facility] [place] [address] Care Team Providers Care Stencil Cutter Name Role Phone Ludivina Soto MD Primary Care Provider [phone] Allergies Active Allergy Reactions Criticality Noted Date [...] Problems Problem Noted Date Diagnosed Date labor ([facility]) 11/28/2019 Social History Tobacco Use Types Packs/Day [...] declined 11/28/2019 How often do you attend mu-ism or spiritism serv ices? Patient declined 11/28/2019 Do you belong to any clubs o r organizations such as mu-ism groups, unions, fraternal or athletic groups, or [...] medical care, and heating? Patient declined 11/28/2019 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 Gender Identity Not on file Sexual Orientation [...] Collected Priority 11/28/2019 10:20 PM CDT Labor ([facility]) from Last 3 Months or Most Recently Relevant to Health Maintenance Results * CHLAMYDIA GC RNA (11/28/2019 10:20 PM CDT) SPECIMEN CERVIX 11/28/2019 10:45 PM CDT [facility] CHLAMYDIA RNA TMA NEGATIVE NEGATIVE 020 4:56 PM CDT [facility] Comment:PERFORMED BY NUCLEIC ACID AMPLIFICATION N.GONORRHOEAE RNA TMA NEGATIVE NEGATIVE 11/29/2019 4:56 PM CDT [facility] Comment:PERFORMED BY NUCLEIC ACID AMPLIFICATION CERVIX UTERI STRUCTURE / Unknown 11/28/2019 10:20 PM CDT Anay Pillai MD MICROBIOLOGY - GENERAL ORDERABL ES Final Result [facility] [address] [place] [address], [facility] [address] [place] [address], [phone] from Last 3 Months or Most Recently [...] 2:11 PM 10/25/2019 8:26 PM Care Teams Stencil Cutter Relationship Specialty Start Date End Date Ludivina Soto MD [address] [place] [address] PCP - General FAMILY PRACTICE 08/26/18
--- OUTSIDE RECORDS SUMMARY | 2024-09-25 21:08 | XMS_ITS | Encounter Summary ---
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
--- OUTSIDE RECORDS SUMMARY | 2024-09-25 21:09 | XMS_ITS | Referral Summary ---
Author Organization [facility] Address [address] [place] [address] Care Team Providers Care Monorail Operator Name Role Phone Ludivina Soto MD Primary Care Provider [phone] Allergies Active Allergy Reactions Criticality Noted Date [...] Legal Sex Female 9:18 PM DIRECTOR OF CURRICULUM Gender Identity Not on file Sexual Orientation [...] this test have been verified by the [facility]. The performance characteristics of this test have not been evaluated in individuals less than 14 years of age. Current Interpretive Data last revised 2023. Urine (None) 08/27/2023 12:2 8 PM CDT 08/27/2023 1:06 PM CDT Israel Islas MD LAB MICROBIOLOGY - GENERAL ORDERABLES Final Result VILMA RANKIN (DEANNA) 1 [facility] Department [place] [address] from Last 3 Months or Most Recently Relevant to Health Maintenance Insurance IDPA [facility] CORE [facility] HMO/PPO Address: [address] [address] [place] [address] Care Teams Monorail Operator Relationship Specialty Start Date End Date Ludivina Soto MD [address] [place] [address] PCP - General 07/18/19
--- OUTSIDE RECORDS SUMMARY | 2024-09-25 21:09 | XMS_ITS | Clinical Summary ---
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 This assay has been cleared by the [place] Food and Drug administration. The performance characteristics of this test have been verified by the [facility]. The performance characteristics of this test have not been evaluated in individuals less than 14 years of age. Current Interpretive Data last revised 2023. Urine (None) 08/27/2023 12:2 8 PM CDT 08/27/2023 1:06 PM CDT Israel Islas MD LAB MICROBIOLOGY - GENERAL ORDERABLES Final Result [facility] [address] [facility] [place] [address] from Last 3 Months or Most Recently Relevant to Health Maintenance Insurance [facility] HMO/PPO Address: [facility] [address] [place] [address] Care Teams Ibm Websphere Commerce Consultant Relationship Specialty Start Date End Date Ludivina Soto MD [address] [place] [address] PCP - General 07/18/19
--- OUTSIDE RECORDS SUMMARY | 2024-09-25 21:09 | XMS_ITS | Encounter Summary ---
Author Organization [facility] Address [address] [place] [address] Care Team Providers Care Senior Tax Analyst Name Role Phone Ludivina Soto MD Primary Care Provider [phone] Encounter Details Date Type Department Care Team (Late st Contact Info) Description 07/19/2019 Telephone [facility] [address] [place] [address] [place] [address] [place] [address] Social History Tobacco Use Types Packs/Day Years Used Date Smoking Tobacco: Some Days Smokeless Tobacco: Never Comments:vape Alcohol Use Standard Drinks/Week Comments Yes 0 (1 standard drink = 0.6 oz pur e alcohol) occasional Comments Yes Sex and Gender Information Value Date Recorded Sex Assigned at Not on file 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 03/15/2020 03/15/2020 03/29/2020 3:0 5 AM ARCHITECTURAL ASSOCIATE documented as of this encounter Care Teams Senior Tax Analyst Relationship Specialty Start Date End Date Ludivina Soto MD [address] [place] [address] [place] [address] PCP - General 07/18/19 documented as of this encounter
[2024-09-25 21:10] VITALS: BP 114/83; PULSE 97; RESP 18; TEMP 36.4; O2SAT 98
--- NOTE | 2024-09-25 21:40 | ED.SKABFB ---
HPI - Skin/Abscess/Foreign Bdy General Chief complaint: Skin/Abscess/Foreign Body Stated complaint: Bee Sting Time Seen by Provider: 09/25/24 21:40 Source: patient Mode of arrival: ambulatory Limitations: no limitations History of Present Illness HPI narrative: Patient is a 24-year-old female with a left foot swelling for being bitten by an insect/Bee/wasp 2 days ago. The area has increased in size and starting to take over most of the left foot with swelling. Slight tingling sensation of the left foot. complaint: rash and insect bite/sting Onset (ago): day(s) ( Two) Location: L foot Severity: moderate Severity scale (1-10): 5 Quality: burning, stabbing and sharp Pain Consistency: constant Relieving factors: rest Exacerbating factors: movement Context: other ( patient has left foot swelling and pain since an insect bite 2 days ago with redness of the left foot as well) Associated symptoms: denies other symptoms Treatments prior to arrival: none Related Data Home Medications ?Medication ?Instructions ?Recorded ?Confirmed ?Last Taken ?Type etonogestrel 68 mg subdermal 1 implant subdermal ONCE 07/16/21 01/19/24 Unknown History implant (Nexplanon) Allergies Allergy/AdvReac Type Severity Reaction Status Date / Time latex Allergy Anaphylaxis Verified 09/25/24 21:25 Review of Systems Review of Systems: All systems reviewed & are unremarkable except as noted in HPI and below Constitutional: Constitutional: Reports no additional constitutional complaints Eyes: Eyes: Reports no additional eye complaints ENT: Reports system reviewed and no additional complaints, except as documented Cardiovascular: Cardiovascular: Reports no additional cardiovascular complaints Respiratory: Respiratory: Reports no additional respiratory complaints Gastrointestinal: Gastrointestinal: Reports no additional gastrointestinal complaints Genitourinary: Genitourinary: Reports no additional female genitourinary complaints Musculoskeletal: Musculoskeletal: Reports no additional musculoskeletal complaints Integumentary/Breasts: Skin/Breast: Reports system reviewed and no additional complaints, except as docu Neurologic: Reports system reviewed and no additional complaints, except as documented Psychiatric: Psychiatric: Reports no additional psychiatric complaints Endocrine: Endocrine: Reports no additional endocrine complaints Hematologic/Lymphatic: Hematologic/Lymphatic: Reports no additional hematologic/lymphatic complaints Allergic/Immunologic: Allergic/Immunologic: Reports no additional allergic/immunologic complaints PMFSH Past Medical History Medical History Cartilage disorder Constipation Interstitial cystitis Family History Family History Other No significant family history Social History Social History Smoking status: Never smoker Substance use type: marijuana Exam Const: General: healthy appearing Nutritional Appearance: well nourished Orientation/consciousness: patient oriented x3 HENMT: Head: normal to inspection Ears: external ears normal Face/Nose/Sinus: Normal external nose present Eyes: Conjunctivae: conjunctivae normal Pupils: Equal, round and reactive pupils present EOM: EOMs intact bilaterally Neck: Neck: normal visual inspection Chest: Chest palpation & inspection: normal inspection of the chest Resp: Effort & Inspection: normal respiratory effort and not labored Auscultation: clear to auscultation bilaterally and no crackles Cardio: Rate: regular rate Rhythm: regular rhythm Heart sounds: no murmurs GI: Inspection: non-distended GI Palp: Yes Soft to palpation and No Tenderness to palpation present (GI) Auscultation: normal bowel sounds : General: Yes bladder normal to palpation Back/Spine/Pelvis: Back: no CVA tenderness Skin: General skin exam: No normal color Rashes: rash noted Wounds: no wounds Other: left foot is swollen with 2+ pitting edema as well as erythema about 3 force of the left foot and good neurovascular bundle distally; tender left foot to palpation Neuro: General: patient oriented x3 Cranial nerves: Yes Nystagmus not present Speech: normal speech Gait exam (Neuro): gait abnormal Other: difficulty walking due to left foot swelling Extrem: General: abnormal to inspection (See left foot skin exam) Psych: Mental Status: mental status grossly normal Affect: normal affect Attitude: cooperative Course Vital Signs Vital signs: Vital Signs Temperature 36.4 C 09/25/24 21:10 Pulse Rate 97 09/25/24 21:10 Respiratory Rate 18 09/25/24 21:10 Blood Pressure 114/83 09/25/24 21:10 Pulse Oximetry 98 09/25/24 21:10 Oxygen Delivery Room Air 09/25/24 21:10 Temperature 36.4 C 09/25/24 21:10 Pulse Rate 86 09/25/24 23:13 Respiratory Rate 16 09/25/24 23:13 Blood Pressure 112/80 09/25/24 23:13 Pulse Oximetry 97 09/25/24 23:13 Oxygen Delivery Room Air 09/25/24 23:13 MDM - Skin/Abscess/Foreign Bdy MDM Narrative Medical decision making narrative: patient is a 24-year-old female with a left foot skin infection after an insect bite 2 days ago. We will do Rocephin IM and Keflex. Discharge Plan Discharge Clinical Impression: Cellulitis Qualifiers: Site of cellulitis: extremity Site of cellulitis of extremity: lower extremity Laterality: left Qualified Code(s): L03.116 - Cellulitis of left lower limb Insect bite Qualifiers: Encounter type: initial encounter Site of insect bite: lower leg Laterality: left Qualified Code(s): S80.862A - Insect bite (nonvenomous), left lower leg, initial encounter Patient Disposition: Home Condition: Stable Instructions: Antibiotic Form, Cellulitis (ED) Patient Language: Estonian Prescriptions: New cephalexin 500 mg capsule 500 mg PO TID 10 Days Qty: 30 0RF No Action amoxicillin-pot clavulanate 875-125 mg tablet 1 tablet PO BID 10 Days Qty: 20 0RF prednisone 20 mg tablet 20 mg PO DAILY 4 Days Qty: 4 0RF Nexplanon 68 mg Implant 1 implant SUBDERMAL ONCE Rx Instructions: as prescribed cyclobenzaprine 10 mg tablet 10 mg PO TID PRN (Reason: muscle spasm) Qty: 10 0RF methylprednisolone [Medrol (Arturo)] 4 mg tablets,dose pack See Rx Instructions .ROUTE .COMPLEX Qty: 21 0RF Rx Instructions: orally per package directions prednisone 20 mg tablet 40 mg PO DAILY 5 Days Qty: 10 0RF albuterol sulfate 90 mcg/actuation HFA aerosol inhaler 2 inh inhalation QID PRN (Reason: shortness of breath or wheezing) Qty: 8.5 0RF azithromycin [Zithromax Z-Arturo] 250 mg tablet See Rx Instructions .ROUTE .COMPLEX Qty: 6 0RF Rx Instructions: For 250 mg dose pack: take 500 mg today (day 1), then 250 mg for 4 days (days 2-5) Follow-up/Referrals: Ludivina Soto MD [Primary Care Provider] - Time of Disposition: 22:34
--- OUTSIDE RECORDS SUMMARY | 2024-09-25 21:53 | XMS_ITS | Referral Summary ---
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 The performance characteristics of this test have not been evaluated in individuals less than 14 years of age. Current Interpretive Data last revised 2023. Urine (None) 08/27/2023 12:2 8 PM CDT 08/27/2023 1:06 PM CDT Israel Islas MD LAB MICROBIOLOGY - GENERAL ORDERABLES Final Result VILMA RANKIN (DEANNA) 1 [facility] Department [place] [address] from Last 3 Months or Most Recently Relevant to Health Maintenance Insurance [employer] Care Teams Leasing Assistant Relationship Specialty Start Date End Date Ludivina Soto MD [address] [place] [address] PCP - General 07/18/19
--- OUTSIDE RECORDS SUMMARY | 2024-09-25 21:53 | XMS_ITS | Clinical Summary ---
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 This assay has been cleared by the [place] Food and Drug administration. The performance characteristics of this test have been verified by the [facility]. The performance characteristics of this test have not been evaluated in individuals less than 14 years of age. Current Interpretive Data last revised 2023. Urine (None) 08/27/2023 12:2 8 PM CDT 08/27/2023 1:06 PM CDT Israel Islas MD LAB MICROBIOLOGY - GENERAL ORDERABLES Final Result [facility] 1 [facility] [place] [address] from Last 3 Months or Most Recently Relevant to Health Maintenance Insurance [facility] Care Teams Environmental Field Professional Relationship Specialty Start Date End Date Ludivina Soto MD [address] [address] PCP - General 07/18/19
--- OUTSIDE RECORDS SUMMARY | 2024-09-25 21:53 | XMS_ITS | Encounter Summary ---
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
--- OUTSIDE RECORDS SUMMARY | 2024-09-25 21:53 | XMS_ITS | Clinical Summary ---
Author Organization [facility] Address [facility] [place] [address] Care Team Providers Care Windshield Wiper Repairer Name Role Phone Ludivina Soto MD Primary Care Provider [phone] Allergies Active Allergy Reactions Criticality Noted Date [...] Problems Problem Noted Date Diagnosed Date labor ([facility]) 11/28/2019 Social History Tobacco Use Types Packs/Day [...] declined 11/28/2019 How often do you attend spiritism or congregation serv ices? Patient declined 11/28/2019 Do you belong to any clubs o r organizations such as spiritism groups, unions, fraternal or athletic groups, or [...] medical care, and heating? 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 Gender Identity Not on file Sexual Orientation [...] Collected Priority 11/28/2019 10:20 PM CDT Labor ([facility]) from Last 3 Months or Most Recently Relevant to Health Maintenance Results * CHLAMYDIA GC RNA (11/28/2019 10:20 PM CDT) SPECIMEN CERVIX 11/28/2019 10:45 PM CDT [facility] CHLAMYDIA RNA TMA NEGATIVE NEGATIVE 020 4:56 PM CDT [facility] Comment:PERFORMED BY NUCLEIC ACID AMPLIFICATION N.GONORRHOEAE RNA TMA NEGATIVE NEGATIVE 11/29/2019 4:56 PM CDT [facility] Comment:PERFORMED BY NUCLEIC ACID AMPLIFICATION CERVIX UTERI STRUCTURE / Unknown 11/28/2019 10:20 PM CDT Anay Pillai MD MICROBIOLOGY - GENERAL ORDERABL ES Final Result [facility] [address] [place] [address], [facility] [address] [place] [address], [id number] from Last 3 Months or Most Recently [...] 2:11 PM 10/25/2019 8:26 PM Care Teams Windshield Wiper Repairer Relationship Specialty Start Date End Date Ludivina Soto MD [address] [place] [address] PCP - General FAMILY PRACTICE 08/26/18
--- OUTSIDE RECORDS SUMMARY | 2024-09-25 21:53 | XMS_ITS | Encounter Summary ---
Author Organization [facility] Healthcare Address [address] [place] [address] Care Team Providers Care Pouring Crane Operator Name Role Phone Ludivina Soto MD Primary Care Provider [phone] Encounter Details Date Type Department Care Team (Late st Contact Info) Description 07/19/2019 Telephone [facility] [address] [place] [address] [place] [address] [place] [address] Social History Tobacco Use Types Packs/Day Years Used Date Smoking Tobacco: Some Days Smokeless Tobacco: Never Comments:vape Alcohol Use Standard Drinks/Week Comments Yes 0 (1 standard drink = 0.6 oz pur e alcohol) occasional Comments Yes Sex and Gender Information Value Date Recorded Sex Assigned at Not on file 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 03/15/2020 03/15/2020 03/29/2020 3:0 5 AM TRIPLE DRUM OPERATOR documented as of this encounter Care Teams Pouring Crane Operator Relationship Specialty Start Date End Date Ludivina Soto MD [address] [place] [address] [place] [address] PCP - General 07/18/19 documented as of this encounter
--- NOTE | 2024-09-25 22:00 | PC.NURSE ---
RESTING ON BED IN ROOM 5. MOTHER AT HER SIDE. ABDELRAHMAN ALCANTARA, OUTSIDE THE ROOM SITTER. PATIENT IS CALM AND COOPERATIVE. TALKING WITH ABDELRAHMAN ALCANTARA, AND MOTHER.
--- NOTE | 2024-09-25 22:06 | PC.NURSE ---
RESTING QUIETLY ON STRETCHER WITH FRIENDS AT HER SIDE. NO NEEDS VOICED. CALL LIGHT IN REACH
[2024-09-25] MEDS: cefTRIAXone 1 GM, LIDOCAINE 1% LOCAL INJ 2.1 ML IM (22:47)
--- NOTE | 2024-09-25 23:00 | PC.NURSE ---
PATIENT IS CALM AND COOPERATIVE. CURRENTLY WAITING ON [facility] ARRIVAL. NO NEEDS VOICED. MOTHER AT HER SIDE. ABDELRAHMAN ALCANTARA, SITTER
[2024-09-25 23:13] VITALS: BP 112/80; PULSE 86; RESP 16; O2SAT 97
== END 2024-09-25 23:13 | disposition home or self-care (01) ==
PROVIDERS: Emergency Provider Emergency Medicine; PCP Family Medicine
DX: S80.862A Insect bite (nonvenomous), left lower leg, initial encounter (principal); L03.116 Cellulitis of left lower limb; W57.XXXA Bitten or stung by nonvenomous insect and other nonvenomous arthropods, initial encounter
CPT/HCPCS: 96372; 99283; J0696; J2003

== ENCOUNTER 2025-01-18 07:49 | Outpatient (CLI) | payer OTHER, MEDICAID, SELFPAY ==
--- NOTE | 2025-01-18 | ECHO_ITS ---
Patient Info Name: Cal Isaac Age: 24 years : 2000 Gender: Female Ht: 63 in Wt: 97 lbs BSA: 1.39 m2 HR: 72 bpm BP: 81 / 63 mmHg Heart Rhythm: Sinus Rhythm Technical Quality: Fair Exam Date: 01/18/2025 8:11 AM Patient Status: O Admit Date: 01/18/2025 Exam Type: CA echo doppler color flow Complete two-dimensional, color flow and Doppler transthoracic echocardiogram is performed. Bobbin Coil Winder: Kya Cherry Attending Provider: Ludivina Soto Summary 1. Complete two-dimensional, color flow and Doppler transthoracic echocardiogram is performed. 2. Left ventricular chamber dimension is normal. 3. Left ventricular systolic function is normal, estimated at 60-65. 4. The left ventricular diastolic function is normal. 5. E/e' 7 is not elevated. 6. The aortic valve is not well visualized. Cannot determine number of aortic valve leaflets. 7. No pulmonary hypertension, estimated pulmonary arterial systolic pressure is 22 mmHg. Left Ventricle E/e' 7 is not elevated. Left ventricular chamber dimension is normal. Left ventricular systolic function is normal, estimated at 60-65. The left ventricular diastolic function is normal. Right Ventricle Right ventricular chamber dimension is normal. Right ventricular systolic function is normal and with normal TAPSE 1.8 cm. Left Atria Left atrial chamber dimension is normal. Right Atria Right atrial chamber dimension is normal. Aortic Valve The aortic valve is not well visualized. Cannot determine number of aortic valve leaflets. There is no aortic valve stenosis. There is no aortic valve regurgitation. Pulmonic Valve There is no pulmonic regurgitation. Mitral Valve There is no mitral valve stenosis. There is no mitral valve regurgitation. Tricuspid Valve There is no tricuspid valve regurgitation. No pulmonary hypertension, estimated pulmonary arterial systolic pressure is 22 mmHg. Pericardium/Pleural There is no pericardial effusion. Inferior Vena Cava Normal inferior vena cava with >50% collapse upon inspiration consistent with normal right atrial pressure, 5 mmHg. Aorta The aortic root size at the sinus of Valsalva is normal. Left Ventricular Outflow Tract Name Value Normal LVOT 2D LVOT Diameter 2.0 cm LVOT Doppler LVOT Peak Velocity 82 cm/s LVOT Peak Gradient 3 mmHg LVOT Mean Gradient 1 mmHg LVOT VTI 16 cm LVOT VTI/AV VTI Ratio 0.7 LVOT Stroke Volume 48 ml LVOT CO 2.6 l/min LVOT CI 1.9 l/min/m2 Pulmonic Valve Name Value Normal RVOT Doppler RVOT Peak Velocity 65 cm/s RVOT Peak Gradient 2 mmHg PV Doppler PV Peak Velocity 81 cm/s PV Peak Gradient 3 mmHg Mitral Valve Name Value Normal MV Diastolic Function MV E Peak Velocity 86 cm/s MV A Peak Velocity 45 cm/s MV E/A 1.9 MV Decel Time (PW) 244 ms MV Annular TDI MV E/e' (Septal) 7.5 MV E/e' (Lateral) 7.7 MV E/e' (Average) 7.6 Tricuspid Valve Name Value Normal TV Regurgitation Doppler TR Peak Velocity 204 cm/s TR Peak Gradient 17 mmHg Estimated PAP/RSVP RA Pressure 5 mmHg <=5 PA Systolic Pressure 22 mmHg <36 RV Systolic Pressure 22 mmHg <36 TV Annular TDI TV Lateral Neisha s' Velocity 11.7 cm/s >=9.5 Aorta Name Value Normal Ascending Aorta Ao Root Diameter (MM) 2.5 cm Ao Root Diam Index (MM) 1.8 cm/m2 Aortic Valve Name Value Normal AV Doppler AV Peak Velocity 114 cm/s AV Peak Gradient 5 mmHg AV Mean Gradient 3 mmHg AV VTI 22 cm AV Area (Cont Eq VTI) 2.2 cm2 >=3.0 AV Area (Cont Eq Holger) 2.2 cm2 AV DI (Holger) 0.72 AV Regurgitation 2D LVOT Area 3.1 cm2 Ventricles Name Value Normal LV Dimensions 2D/MM IVS Diastolic Thickness (2D) 0.7 cm 0.6-1.0 LVID Diastole (2D) 3.7 cm 3.8-5.2 LVIW Diastolic Thickness (2D) 0.7 cm 0.6-0.9 LVID Systole (2D) 2.4 cm 2.2-3.5 LVOT Diameter 2.0 cm LV Mass (2D Cubed) 65.63 g 67.00-162.00 LV Mass Index (2D Cubed) 47 g/m2 43-95 Relative Wall Thickness (2D) 0.35 <=0.42 LV Fractional Shortening/Ejection Fraction 2D/MM LV Fractional Shortening (2D) 36 % 27-45 LV EF (2D Teichholz) 67 % LV Diastolic Volume (4C MOD) 49 ml LV EF (4C MOD) 64 % LV Diastolic Volume (2C MOD) 58 ml LV EF (2C MOD) 61 % LV Diastolic Volume (BP MOD) 55 ml 46-106 LV Diastolic Volume Index (BP MOD) 39 ml/m2 29-61 LV Systolic Volume (BP MOD) 20 ml 14-42 LV Systolic Volume Index (BP MOD) 14 ml/m2 8-24 LV EF (BP MOD) 64 % 54-74 LV Diastolic Length (4C) 6.4 cm LV Systolic Length (4C) 4.6 cm LV Stroke Volume (4C MOD) 32 ml Atria Name Value Normal LA Dimensions LA Dimension (MM) 2.6 cm 2.7-3.8 LA Volume (4C A-L) 20 ml LA Volume (BP A-L) 20 ml RA Dimensions RA Area (4C) 6.6 cm2 <=18.0 Report Signatures
--- OUTSIDE RECORDS SUMMARY | 2025-01-18 07:56 | XMS_ITS | Encounter Summary ---
Author Organization [facility] Healthcare Address [address] [place] [address] Care Team Providers Care Manager Special Events Name Role Phone Ludivina Soto MD Primary Care Provider [phone] Encounter Details Date Type Department Care Team (Late st Contact Info) Description 07/19/2019 Telephone [facility] [address] [place] [address] [place] [address] [place] [address] Social History Tobacco Use Types Packs/Day Years Used Date Smoking Tobacco: Some Days Smokeless Tobacco: Never Comments:vape Alcohol Use Standard Drinks/Week Comments Yes 0 (1 standard drink = 0.6 oz pur e alcohol) occasional Comments Yes Sex and Gender Information Value Date Recorded Sex Assigned at Not on file 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 03/15/2020 03/15/2020 03/29/2020 3:0 5 AM ELECTRICAL LINE SPLICER documented as of this encounter Care Teams Manager Special Events Relationship Specialty Start Date End Date Ludivina Soto MD [address] [place] [address] [place] [address] PCP - General 07/18/19 documented as of this encounter
--- OUTSIDE RECORDS SUMMARY | 2025-01-18 07:56 | XMS_ITS | Patient Health Record ---
Author Organization [facility] [employer] Address [address] [place] [address] Support Name Relationship Address Phone ZAKI ESPINOZA Emergency Contact Unknown Unavai yoni HARRY AGUIRRE Guarantor Unknown [phone] Reason For Referral No Information Medications Medication SIG (Take, Route, Frequency, Duration) Notes Start Date End Date Status Polymyxin B-Trimethoprim 15082-1.1 UNIT/ML Solution Ophthalmic 06/03/2023 A ctive Vraylar 3 mg Capsule Oral 06/03/2023 Active Ondansetron 4 MG Tablet Disintegrating Oral 06/03/2023 Active [place] Carbonate ER 300 MG Tablet Extended Release Oral 06/03/2023 Acti ve ARIPiprazole 5 MG Tablet Oral 06/03/2023 Active Vraylar 1.5 mg Capsule Oral 06/03/2023 Active Immunizations Vaccine Route Administration Date Status Comme nts Moderna Covid-19 Vaccine 1st dose Unknown 07/08/2020 Ad ministered Moderna Covid-19 Vaccine 1st dose Unknown 08/10/2020 Ad ministered Social History Social History Additional Details Category Social Info Options Details Migrated Social History Migrated Social History Alcohol Intake: Occasional 10/01/2022,Tobacco Years: Current every day smoker 08/01/2021 Plan Of Treatment No Information Insurance Providers Payer Name Payer Address Payer Phone Subscriber Number Group Number Insured Name Patient Relationship to Insured Coverage Start Date Coverage End Date r [address] [address] [place] [address] [id number] ZAKI ESPINOZA Natural Child - Insured has Financial Responsibility
--- OUTSIDE RECORDS SUMMARY | 2025-01-18 07:56 | XMS_ITS | Clinical Summary ---
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 This assay has been cleared by the [place] Food and Drug administration. The performance characteristics of this test have been verified by the [facility]. The performance characteristics of this test have not been evaluated in individuals less than 14 years of age. Current Interpretive Data last revised 2023. Urine (None) 08/27/2023 12:2 8 PM CDT 08/27/2023 1:06 PM CDT Israel Islas MD LAB MICROBIOLOGY - GENERAL ORDERABLES Final Result [facility] 1 [facility] [place] [address] from Last 3 Months or Most Recently Relevant to Health Maintenance Insurance [facility] HMO/PPO Address[facility] [address] [place] [address] Care Teams Religion Department Chair Relationship Specialty Start Date End Date Ludivina Soto MD [address] [facility] [address] [address] PCP - General 07/18/19
--- OUTSIDE RECORDS SUMMARY | 2025-01-18 07:56 | XMS_ITS | Encounter Summary ---
Author Organization [facility] Address [facility]ly [facility] [place] [address] Care Team Providers Care Rocket Motor Mechanic Name Role Phone Ludivina Soto MD Primary Care Provider [phone] Encounter Details Date Type Department Care Team ([facility] Contact Info) Description 08/21/2018 Abstract SFL CONVERSION [address], [place] [id number] , Generic Conversion, Social History Tobacco Use Types Packs/Day Years Used Date Smoking Tobacco: Never Assessed Comments Unknown Sex and Gender Information Value Date Recorded Sex Assigned at Female 11/24/2024 10:18 AM CDT Legal Sex Female 5:49 PM GUIDE Gender Identity Not on file Sexual Orientation Not on file documented as of this encounter Plan of Treatment Not on file documented as of this encounter Visit Diagnoses Not on filedocumented in this encounter Care Teams Rocket Motor Mechanic Relationship Specialty Start Date End Date Ludivina Soto MD [address] [place] [id number] PCP - General FAMILY PRACTICE 08/26/18 documented as of this encounter
--- OUTSIDE RECORDS SUMMARY | 2025-01-18 07:56 | XMS_ITS | Clinical Summary ---
Author Organization [facility] Address [facility] [place] [address] Care Team Providers Care Coo Name Role Phone Apolonia Soto MD Primary Care Provider [phone] Allergies Active Allergy Reactions Criticality Noted Date [...] Problems Problem Noted Date Diagnosed Date labor 11/28/2019 Encounters Date Type Department Care Team Description 11/24/2024 10:21 AM CDT - 11/24/2024 11:59 PM CDT Hospital Encounter [facility] [place] [address] [place] [address] Apolonia Soto MD Discharge Disposition: Home or Self Care (Routine Discharge) 11/24/2024 Travel 11/11/2024 Orders Only [facility] [place] [address] [place] [address] Apolonia Soto MD from Last 3 Months Social History Tobacco [...] declined 11/28/2019 Social Connection and Isolation Panel Answer Date Recorded In a typical week, how many times do you talk on the phone with family, friends, or neighbors? Patient declined 11/28/2019 How often do you get togethe r with friends or relatives? Patient declined 11/28/2019 How often do you attend methodist or mormonism serv ices? Patient declined 11/28/2019 Do you belong to any clubs o r organizations such as methodist groups, unions, fraternal or athletic groups, or [...] medical care, and heating? Patient declined 11/28/2019 [facility] of Occupat ional Health - Occupational Stress [...] AM CDT Legal Sex Female 5:49 PM MD DO [facility] Gender Identity Not on file Sexual Orientation [...] ages 16-24 11/27/2020 11/28/2019, 04/24/2016 COVID-19 Vaccine (3 - 2024- season) 2024 08/10/2020, 07/08/2020 Influenza Adult (#1) 2024 Meningococcal Vaccine Completed 09/15/2017, 012 Hepatitis A Vaccines Aged Out No long er eligible based on patient's age to complete this topic Meningococcal B Vaccine Aged Out No l onger eligible based on patient's age to complete this topic RSV Immunizations Under 20 Months Aged Out No longer eligible based on patient's age to complete this topic Procedures Procedure Name Priority Date/Time Associated Diagnosis Comments HOLTER MONITOR 48 HR REC Routine 11/24/2024 10:34 AM CDT Fatigue CHLAMYDIA GC RNA Nurse Collected Priority 11/28/2019 10:20 PM CDT Labor ([facility]) from Last 3 Months or Most Recently Relevant to Health Maintenance Results * Holter Monitor 48 Hr Rec (Peds) (11/24/2024 10:34 AM CDT) 11/24/2024 10:3 4 AM CDT Narrative ESCRIPTION - 12/13/2024 10:12 AM CDT Patient Name: HARRY AGUIRRE Date of : 2000 Account: [id number] Facility: Location: [facility] Date of Service: 11/24/2024 Holter Monitor DATE OF MONITORIN11/24/2024 through 11/26/2024. ORDERING PHYSICIAN: Apolonia Soto MD. INTERPRETING PHYSICIAN: Rustam Beaver MD. INDICATION: Fatigue. FINDINGS: 1. Baseline rhythm: The baseline rhythm was normal sinus rhythm at 93 beats per minute. 2. Sinus node function: There is no evidence of sinus node dysfunction in this monitoring. Minimal heart rate was 43 beats per minute with an average heart rate of 74 beats per minute and a maximum heart rate of 164 beats per minute. 3. AV conduction: There is no evidence of significant AV block or pauses longer than 3 seconds. 4. Atrial arrhythmias: No significant atrial arrhythmias were noted. Rare PACs with less than 1% burden noted. 5. Ventricular arrhythmias: No significant ventricular arrhythmias were noted. Rare PVCs with less than 1% burden noted. 6. Symptoms: The patient sent in 4 transmissions with symptoms of stabby pain, shortness of breath and fatigue. All of which correlate with sinus rhythm. IMPRESSION: No significant atrial or ventricular arrhythmias were noted in this monitoring. Signature/Date: RUSTAM BEAVER #[id number] /PRA A copy of this report has been sent to: APOLONIA SOTO MD(Autofax) us Apolonia Soto MD HOLTER Final Result ESCRIPTION * CHLAMYDIA GC RNA (11/28/2019 10:20 PM CDT) SPECIMEN CERVIX 11/28/2019 10:45 PM CDT [facility] CHLAMYDIA RNA TMA NEGATIVE NEGATIVE 020 4:56 PM CDT [facility] Comment:PERFORMED BY NUCLEIC ACID AMPLIFICATION N.GONORRHOEAE RNA TMA NEGATIVE NEGATIVE 11/29/2019 4:56 PM CDT [facility] Comment:PERFORMED BY NUCLEIC ACID AMPLIFICATION CERVIX UTERI STRUCTURE / Unknown 11/28/2019 10:20 PM CDT us Anay Pillai MD MICROBIOLOGY - GENERAL ORDERABL ES Final Result [facility] [address] [place] [address], [place] [phone] [facility] [address] [place] [address], [id number] from Last 3 Months or Most Recently Relevant to Health Maintenance Insurance MEDICAID R Advance Directives * Full Code (Latest Code [...] 2:11 PM 10/25/2019 8:26 PM Care Teams Coo Relationship Specialty Start Date End Date Apolonia Soto MD [address] [facility] [place] [phone] PCP - General FAMILY PRACTICE 08/26/18
== END 2025-01-18 07:50 | disposition home or self-care (01) ==
PROVIDERS: PCP Family Medicine; Visit Provider Family Medicine
DX: R00.2 Palpitations (principal)
CPT/HCPCS: 93306